=== PATIENT | female | born 1965 | race Caucasian/White ===

== ENCOUNTER 2021-02-04 15:58 | Outpatient (CLI) | payer OTHER, SELFPAY ==
--- NOTE | ~2021-02-04 | XR_ITS ---
EXAMINATION:XR_[id number]_CR DATE: 02/04/2021 16:40 INDICATION: Neck pain TECHNIQUE: AP, lateral, lateral swimmers and odontoid views of the cervical spine are provided. COMPARISON: None FINDINGS: Alignment is normal. The odontoid is intact. No fracture is identified. There are changes o f anterior fusion with interbody device placement at C5-6 and C6-7. There is severe loss of intervert ebral disc space height at C4-5. There is mild loss of vertebral body height at C5-C6. Severe facet a nd uncovertebral joint osteoarthritis is present at C4-5. Prevertebral soft tissues are normal. IMPRESSION: 1. Severe cervical spondylosis at C4-5 with changes of anterior fusion from C5 through C7. Reviewed, dictated and finalized at location A.
[2021-02-04 16:17] LABS: Basophils Absolute Auto 0.07 K/mm3 (0.00-0.10); Basophils Percent Auto 0.8 % (0.0-1.0); Eosinophils Percent Auto 3.3 % (1.0-6.0); Hematocrit 45.2 % (35.0-49.0); Hemoglobin 15.5 g/dL (12.0-15.0); Immature Granulocyte Absolute 0.03 K/mm3 (0.00-0.00); Immature Granulocyte Percent A 0.3 % (0.0-0.0); Lymphocytes Absolute Auto 2.88 K/mm3 (1.10-4.50); Lymphocytes Percent Auto 31.5 % (18.0-42.0); Mean Corpuscular HGB Conc 34.3 g/dL (32.0-36.0); Mean Corpuscular Hemoglobin 30.9 pg (27.0-31.0); Neutrophils Absolute Auto 4.8 K/mm3 (1.7-7.2); Neutrophils Percent Auto 52.1 % (50.0-70.0); Platelet Count Result 346 K/mm3 (150-420); Red Blood Count 5.02 M/mm3 (4.20-5.40); Red Cell Distribution Width 13.4 % (11.6-14.4); White Blood Count 9.1 K/mm3 (4.8-10.8)
[2021-02-04 16:38] LABS: Hemoglobin A1C 9.6 % (<5.7)
[2021-02-04 17:12] LABS: Alanine Aminotransferase 27 U/L (14-59); Albumin Level 4.1 g/dL (3.4-5.0); Alkaline Phosphatase 117 U/L (46-116); Anion Gap 12 mmol/L (8-16); Aspartate Amino Transferase 14 U/L (15-37); Bilirubin,Total 0.6 mg/dL (0.00-1.00); Blood Urea Nitrogen 16 mg/dL (7-18); Calcium 9.6 mg/dL (8.5-10.1); Carbon Dioxide 24 mmol/L (21-32); Chloride 102 mmol/L (98-108); Cholesterol 206 mg/dL (0-200); Estimated Glomerular Filt Rate 39; Glucose 57 mg/dL (70-99); HDL Direct 39 mg/dL (40-60); LDL Cholesterol Calculated 122 mg/dL (<130); Osmolality Calculated 285 mOsm/kg (285-295); Potassium 3.8 mmol/L (3.5-5.1); Sodium 138 mmol/L (136-145); Thyroid Stimulating Hormone 1.08 uIU/mL (0.36-3.74); Total Protein 8.4 g/dL (6.4-8.2); Triglycerides 226 mg/dL (0-150)
== END 2021-02-04 15:59 | disposition home or self-care (01) ==
LOC: CHSLAB 16:03
PROVIDERS: PCP Nurse Practitioner Family; Visit Provider Nurse Practitioner Family
DX: M54.2 Cervicalgia (principal); E11.9 Type 2 diabetes mellitus without complications; C73 Malignant neoplasm of thyroid gland
CPT/HCPCS: 36415; 72040; 80053; 80061; 83036; 84443; 85025

== ENCOUNTER 2021-04-30 10:25 | Outpatient (CLI) | payer OTHER, SELFPAY ==
[2021-04-30 10:36] LABS: Basophils Absolute Auto 0.08 K/mm3 (0.00-0.10); Eosinophils Absolute Auto 0.24 K/mm3 (0.02-0.50); Eosinophils Percent Auto 2.9 % (1.0-6.0); Hematocrit 47.9 % (35.0-49.0); Hemoglobin 16.5 g/dL (12.0-15.0); Immature Granulocyte Absolute 0.03 K/mm3 (0.00-0.00); Immature Granulocyte Percent A 0.4 % (0.0-0.0); Lymphocytes Absolute Auto 2.23 K/mm3 (1.10-4.50); Lymphocytes Percent Auto 26.7 % (18.0-42.0); Mean Corpuscular HGB Conc 34.4 g/dL (32.0-36.0); Mean Corpuscular Hemoglobin 30.8 pg (27.0-31.0); Mean Corpuscular Volume 89.5 fL (78.0-102.0); Mean Platelet Volume 9.1 fl (9.2-11.8); Monocytes Absolute Auto 0.83 K/mm3 (0.10-0.90); Monocytes Percent Auto 9.9 % (2.0-11.0); Neutrophils Absolute Auto 4.9 K/mm3 (1.7-7.2); Neutrophils Percent Auto 59.1 % (50.0-70.0); Platelet Count Result 310 K/mm3 (150-420); Red Blood Count 5.35 M/mm3 (4.20-5.40); Red Cell Distribution Width 12.6 % (11.6-14.4); White Blood Count 8.4 K/mm3 (4.8-10.8)
[2021-04-30 11:24] LABS: Alanine Aminotransferase 27 U/L (14-59); Albumin Level 4.1 g/dL (3.4-5.0); Alkaline Phosphatase 127 U/L (46-116); Anion Gap 14 mmol/L (8-16); Aspartate Amino Transferase 16 U/L (15-37); Bilirubin,Total 0.5 mg/dL (0.00-1.00); Blood Urea Nitrogen 14 mg/dL (7-18); Carbon Dioxide 25 mmol/L (21-32); Chloride 101 mmol/L (98-108); Cholesterol 244 mg/dL (0-200); Estimated Glomerular Filt Rate 50; Glucose 252 mg/dL (70-99); HDL Direct 42 mg/dL (40-60); LDL Cholesterol Calculated 160 mg/dL (<130); Osmolality Calculated 299 mOsm/kg (285-295); Potassium 4.5 mmol/L (3.5-5.1); Sodium 140 mmol/L (136-145); Thyroid Stimulating Hormone 1.91 uIU/mL (0.36-3.74); Triglycerides 210 mg/dL (0-150)
== END 2021-04-30 10:26 | disposition home or self-care (01) ==
LOC: CHSLAB 10:27
PROVIDERS: PCP Nurse Practitioner Family; Visit Provider Nurse Practitioner Family
DX: E78.5 Hyperlipidemia, unspecified (principal); C73 Malignant neoplasm of thyroid gland; E11.9 Type 2 diabetes mellitus without complications
CPT/HCPCS: 36415; 80053; 80061; 83036; 84443; 85025

== ENCOUNTER 2021-06-04 08:58 | Outpatient (RCR) | payer OTHER, SELFPAY ==
--- NOTE | 2021-06-05 07:24 | PTOPEVAL ---
Thank you for referring Maggie García to [facility].? The patient is scheduled to be seen for therapy? __1__x/week for 8 visits. Please review, sign, date and return this plan of care LOVELY. I agree with and certify that the following plan of care is medically necessary. Referring Physician Date Admitting Provider: Attending Provider: Martha Haas NP Referring Provider: *PT Outpatient Evaluation Start: 06/05/21 06:51 Freq: Status: Active Protocol: Document 06/04/21 09:00 ISH (Rec: 06/05/21 07:24 [facility] [id number]) Therapy Assessment Status Assessment Status Assessment Status Evaluation Evaluation Information Problem Diagnosis cervicalgia Onset 11/01/20 Subjective Information Pt. reports that she first Query Text:As Reported By Patient/ expereinced neck pain in 2015 Family and underwent a fusion the same year. She reports that she noticed increasing pain since the beginning of the year. She states that she underwent xray and has severe arthritis in her neck. She notes pain and popping with described rotation of the neck and head. She describes most pain on the right side of the neck and radiates into the right hand. She reports that pain limits her sleep and she wakes frequently due to pain. She reports that her goal for therapy is to reduce her neck pain and get better sleep. Prior Level of Function Activity Level (Last 3 Months) Occupation disabled due to MS Hand Dominance Right Activity of Daily Living Ability Independent Indoor/Home Mobility Independent Community Mobility Independent Stairs Ability Independent Functional Cognition (Planning, Shopping Independent , Taking Medications) Cooking Yes Cleaning Yes Laundry Yes Shopping Yes Driving Yes Pain Assessment Timing of Pain Assessment Timing of Pain Assessment Pre-Treatment Pain Scale Pain Scale Used Numeric (1 - 10) Self Report Pain Assessment Neck Reported Pain Level 5 Pain Description Aching Pain Frequency Acute Pain Aggravating Fact
--- NOTE | 2021-07-23 10:03 | PTOPEVAL ---
Thank you for referring Maggie García to [facility].? The patient is scheduled to be seen for therapy? ____x/week for ___ weeks. Please review, sign, date and return this plan of care LOVELY. I agree with and certify that the following plan of care is medically necessary. Referring Physician Date Admitting Provider: Attending Provider: Martha Haas NP Referring Provider: GEORGINA Outpatient Evaluation Start: 06/05/21 06:51 Freq: Status: Active Protocol: Document 07/23/21 09:11 ACR (Rec: 07/23/21 10:02 [facility] [id number]) Therapy Assessment Status Assessment Status Assessment Status Discharge Evaluation Information Problem Diagnosis cervicalgia Onset 11/01/20 Subjective Information Patient reports that since Query Text:As Reported By Patient/ beginning therapy she doesn't Family believe that much has changed. Patient states that she is doing exercises at home, but the bands are hurting her hands with her MS. The patient states the hands are getting worse. Pain Assessment Timing of Pain Assessment Timing of Pain Assessment Assessment Pain Scale Pain Scale Used Numeric (1 - 10) Self Report Pain Assessment Neck Reported Pain Level 7 Greatest Pain Intensity 10 Pain Score Pain Score 7: Self Report Interventions Used Interventions Used By Clinicians Activity or ADL's,Electrical Stimulation,Exercise,Heat Cervical and Lumbar ROM Cervical ROM Cervical Flexion (0-60) 30 Query Text:Active in Degrees Cervical Extension (0-70) 35 Query Text:Active in Degrees Cervical Lateral Flexion Right (0-50) 25 Query Text:Active in Degrees Cervical Lateral Flexion Left (0-50) 19 Query Text:Active in Degrees Cervical Rotation Right (0-90) 27 Query Text:Active in Degrees Cervical Rotation Left (0-90) 40 Query Text:Active in Degrees Upper Extremity Muscle Strength Testing Scapular/Shoulder Right Shoulder Flexion Strength 4 Good Shoulder Abduction Strength 4 Good Shoulder Lateral Rotation Strength 4 Good Left Shoulder Flexion Strength 4 Good Shoulder Extension Strength 4 Good Shoulder Lateral Rotation Strength 4 Good Elbow/Forearm Right Elbow Flexion Strength 5 Normal Elbow Extension Strength 4 Good Left Elbow Flexion Strength 5 Normal Elbow Extension Strength 4 Good General Exercise General Exercises Exercise Description - reeval x 5 minutes Query Text:Record Sets, Reps, -bila
== END 2021-07-23 13:43 | disposition home or self-care (01) ==
LOC: CHSPT 08:58
PROVIDERS: PCP Nurse Practitioner Family; Visit Provider Nurse Practitioner Family
DX: M54.2 Cervicalgia (principal); M54.12 Radiculopathy, cervical region
CPT/HCPCS: 97014; 97110; 97161; G0283

== ENCOUNTER 2021-08-06 09:12 | Outpatient (CLI) | payer OTHER, SELFPAY ==
--- NOTE | ~2021-08-06 | MR_ITS ---
EXAMINATION: MR cervical spine wo/w con DATE: 08/06/2021 11:45 INDICATION: Cervicalgia with neck and bilateral upper extremity pain TECHNIQUE: Magnetic resonance imaging (MRI) of the cervical spine was performed without and with 15 m L Multihance intravenous contrast. Sequences included sagittal T2-weighted FSE, sagittal T2-weighted FS FSE, sagittal T1-weighted FSE, axial T2-weighted FSE, and axial T1-weighted SE. Postcontrast seque nces included sagittal T1-weighted FS FSE, and axial T1-weighted FS SE. COMPARISON: Cervical spine radiographs dated 02/04/2021 FINDINGS: There is straightening of the normal cervical lordosis. Mild upper thoracic levocurvature. Anterior s dandy fusion at C5-C7 with interbody bone graft cages which result in some surrounding metallic field s artifact. Unfused vertebral body heights are normal. There is increased marrow signal on both the T 2 and postcontrast T1 fat-saturated images at C4-C5 which could be reactive related to the degenerati ve disc disease at C4-C5 or artifact from the adjacent metallic bone graft cages at C5-C6. Marrow sig nal is otherwise normal.. Moderate disc height loss with degenerative endplate changes at C4-C5. Mild right-sided predominant disc height loss at T2-T3 through T4-T5. There is mild increased cord signal with deformation of the cord at the level of a severe stenosis at C4-C5. Mild non masslike enhanceme nt of the paraspinal musculature on the right adjacent to the C4-C5 facet joint which is likely react elizabeth related to the severe osteoarthritis. Cervical soft tissues are otherwise unremarkable. No other suspicious foci of abnormal enhancement. The following disc levels are specifically discussed: C2-C3: The disc does not extend beyond the endplate margin. There is no uncovertebral joint osteoarth ritis. There is mild right and severe left facet joint osteoarthritis. There is mild left neural fora erika stenosis. There is no central canal stenosis. C3-C4: Small central disc protrusion. There is mild left uncovertebral joint osteoarthritis. There is severe bilateral facet joint osteoarthritis. There is mild right and mild to moderate left neural fo raminal stenosis. There is minimal central canal stenosis. C4-C5: Annular fissure and broad-based disc extrusion extending from foraminal zone to foraminal zone with disc material extending a few millimeters cephalad and caudal to the level of the endplates. Th ere is hypertrophy of the ligamentum flavum. There is severe bilateral uncovertebral joint osteoarthr itis. There is moderate left and severe right facet joint osteoarthritis. There is moderate bilateral neural foraminal stenosis. There is severe central canal stenosis which measures 4-5 mm AP in the mi d sagittal plane. The cord is flattened AP and widened [id number] with effacement of the surroundi ng CSF signal. C5-C6: Disc space is fused with posterior endplate osteophytes. There is mild bilateral facet joint o steoarthritis. There is moderate bilateral neural foraminal stenosis. There is mild to moderate centr al canal stenosis measuring 8 mm AP in the mid sagittal plane with mild flattening of the cord which remains surrounded by CSF signal. C6-C7: Hypertrophic osteophyte extending across the posterior margin of the fused disc space There is mild bilateral facet joint osteoarthritis. There is mild right and mild to moderate left neural fora erika stenosis. There is mild central canal stenosis measuring 9 mm AP in the mid sagittal plane. C7-T1: The disc does not extend beyond the endplate margin. There is no uncovertebral joint osteoarth ritis. There is mild right and severe left facet joint osteoarthritis. There is moderate left neural foraminal stenosis. In addition there appears to be compression of the exiting left C8 nerve root whe re it passes between the left transverse process of C7, the hypertrophic osteophytes at the anterior m
[2021-08-06 09:35] LABS: Estimated Glomerular Filt Rate > 60
== END 2021-08-06 09:13 | disposition home or self-care (01) ==
LOC: CHSIMG 09:13
PROVIDERS: PCP Nurse Practitioner Family; Visit Provider Nurse Practitioner Family
DX: M54.2 Cervicalgia (principal); M54.12 Radiculopathy, cervical region; Z98.1 Arthrodesis status
CPT/HCPCS: 72156; A9577

== ENCOUNTER 2021-12-27 09:13 | Outpatient (CLI) | payer OTHER, SELFPAY ==
[2021-12-27 09:36] LABS: Hemoglobin A1C 10.5 % (<5.7)
[2021-12-27 10:46] LABS: Thyroid Stimulating Hormone 1.26 uIU/mL (0.36-3.74)
== END 2021-12-27 09:14 | disposition home or self-care (01) ==
LOC: CHSLAB 09:14
PROVIDERS: PCP Nurse Practitioner Family; Visit Provider Nurse Practitioner Family
DX: E11.9 Type 2 diabetes mellitus without complications (principal); C73 Malignant neoplasm of thyroid gland
CPT/HCPCS: 36415; 83036; 84443

== ENCOUNTER 2021-12-30 11:57 | Outpatient (CLI) | payer OTHER, SELFPAY | END 2021-12-30 11:58 | disposition home or self-care (01) | LOC: CHSIMG 11:58 | PROVIDERS: PCP Nurse Practitioner Family; Visit Provider Nurse Practitioner Family | DX: Z12.31 Encounter for screening mammogram for malignant neoplasm of breast (principal) | CPT/HCPCS: 99199 ==

== ENCOUNTER 2022-05-05 10:48 | Outpatient (CLI) | payer OTHER, SELFPAY ==
[2022-05-05 11:04] LABS: Basophils Absolute Auto 0.07 K/mm3 (0.00-0.10); Basophils Percent Auto 0.8 % (0.0-1.0); Eosinophils Absolute Auto 0.29 K/mm3 (0.02-0.50); Eosinophils Percent Auto 3.4 % (1.0-6.0); Hematocrit 46.1 % (35.0-49.0); Hemoglobin 15.9 g/dL (12.0-15.0); Immature Granulocyte Absolute 0.02 K/mm3 (0.00-0.00); Immature Granulocyte Percent A 0.2 % (0.0-0.0); Lymphocytes Absolute Auto 2.26 K/mm3 (1.10-4.50); Lymphocytes Percent Auto 26.9 % (18.0-42.0); Mean Corpuscular HGB Conc 34.5 g/dL (32.0-36.0); Mean Corpuscular Hemoglobin 30.5 pg (27.0-31.0); Mean Corpuscular Volume 88.5 fL (78.0-102.0); Mean Platelet Volume 9.5 fl (9.2-11.8); Monocytes Percent Auto 10.7 % (2.0-11.0); Neutrophils Absolute Auto 4.9 K/mm3 (1.7-7.2); Platelet Count Result 289 K/mm3 (150-420); Red Blood Count 5.21 M/mm3 (4.20-5.40); Red Cell Distribution Width 12.9 % (11.6-14.4); White Blood Count 8.4 K/mm3 (4.8-10.8)
[2022-05-05 11:24] LABS: Hemoglobin A1C 10.4 % (<5.7)
[2022-05-05 11:39] LABS: Alanine Aminotransferase 23 U/L (14-59); Albumin Level 3.9 g/dL (3.4-5.0); Alkaline Phosphatase 164 U/L (46-116); Anion Gap 10 mmol/L (8-16); Aspartate Amino Transferase 13 U/L (15-37); Bilirubin,Total 0.4 mg/dL (0.00-1.00); Blood Urea Nitrogen 11 mg/dL (7-18); Calcium 9.2 mg/dL (8.5-10.1); Carbon Dioxide 26 mmol/L (21-32); Chloride 107 mmol/L (98-108); Estimated Glomerular Filt Rate 60; Glucose 210 mg/dL (70-99); Osmolality Calculated 301 mOsm/kg (285-295); Sodium 143 mmol/L (136-145); Total Protein 7.9 g/dL (6.4-8.2)
[2022-05-06 11:41] LABS: Cholesterol 273 mg/dL (0-200); HDL Direct 39 mg/dL (40-60); LDL Cholesterol Calculated 175 mg/dL (<130); Triglycerides 295 mg/dL (0-150)
== END 2022-05-05 10:49 | disposition home or self-care (01) ==
LOC: CHSLAB 10:50
PROVIDERS: Nurse Practitioner Family; PCP Nurse Practitioner Family; Visit Provider Nurse Practitioner Family
DX: E78.5 Hyperlipidemia, unspecified (principal); E11.9 Type 2 diabetes mellitus without complications; C73 Malignant neoplasm of thyroid gland
CPT/HCPCS: 36415; 80053; 80061; 83036; 84443; 85025

== ENCOUNTER 2022-12-23 13:03 | Outpatient (CLI) | payer MEDICARE, SELFPAY ==
--- NOTE | 2022-12-23 13:19 | ECG_ITS ---
Measurements Intervals [place] Rate: 97 P: -8 SC: 155 QRS: 15 QRSD: 93 T: 1 QT: 338 QTc: 431 Interpretive Statements SINUS RHYTHM NONSPECIFIC T-WAVE ABNORMALITY ABNORMAL ECG NO PREVIOUS ECG AVAILABLE FOR COMPARISON Electronically Signed On 12-23-2022 13:42:15 [employer] by Elliot Tao M.D.
[2022-12-23 13:21] LABS: Hematocrit 37.3 % (35.0-49.0); Hemoglobin 12.7 g/dL (12.0-15.0); Mean Corpuscular Hemoglobin 29.6 pg (27.0-31.0); Mean Corpuscular Volume 86.9 fL (78.0-102.0); Mean Platelet Volume 9.2 fl (9.2-11.8); Platelet Count Result 339 K/mm3 (150-420); Red Blood Count 4.29 M/mm3 (4.20-5.40); Red Cell Distribution Width 12.5 % (11.6-14.4); White Blood Count 13.1 K/mm3 (4.8-10.8)
[2022-12-23 13:45] LABS: Hemoglobin A1C 8.3 % (<5.7)
[2022-12-23 14:44] LABS: Alanine Aminotransferase 28 U/L (14-59); Albumin Level 3.3 g/dL (3.4-5.0); Alkaline Phosphatase 109 U/L (46-116); Anion Gap 11 mmol/L (8-16); Aspartate Amino Transferase 19 U/L (15-37); Bilirubin,Total 0.4 mg/dL (0.00-1.00); Blood Urea Nitrogen 10 mg/dL (7-18); Calcium 8.7 mg/dL (8.5-10.1); Carbon Dioxide 29 mmol/L (21-32); Chloride 104 mmol/L (98-108); Cholesterol 170 mg/dL (0-200); Estimated Glomerular Filt Rate > 60; Free T4 Free Thyroxine 1.13 ng/dL (0.76-1.46); Glucose 65 mg/dL (70-99); HDL Direct 25 mg/dL (40-60); LDL Cholesterol Calculated 114 mg/dL (<130); NT Pro B Type Natriuretic Pept 61 pg/mL (0-125); Osmolality Calculated 295 mOsm/kg (285-295); Potassium 3.6 mmol/L (3.5-5.1); Sodium 144 mmol/L (136-145); Thyroid Stimulating Hormone 1.09 uIU/mL (0.36-3.74); Total Protein 7.4 g/dL (6.4-8.2); Triglycerides 157 mg/dL (0-150)
== END 2022-12-23 13:04 | disposition home or self-care (01) ==
PROVIDERS: PCP Nurse Practitioner Family; Visit Provider Nurse Practitioner Family
DX: E78.5 Hyperlipidemia, unspecified (principal); E11.9 Type 2 diabetes mellitus without complications; E89.0 Postprocedural hypothyroidism; R00.0 Tachycardia, unspecified; R07.89 Other chest pain; R06.82 Tachypnea, not elsewhere classified
CPT/HCPCS: 36415; 80053; 80061; 83036; 83880; 84439; 84443; 85027; 93005

== ENCOUNTER 2023-02-26 01:49 | Day surgery (SDC) | payer MEDICARE, SELFPAY ==
[2023-02-09 15:08] VITALS: BMI 24.0
--- NOTE | 2023-02-09 15:14 | PC.NURSE ---
Addendum entered by Liz Chavira RN 02/18/23 11:28: PT INSTRUCTED NOT TO TAKE ANY INSULIN MORNING OF SURGERY. Addendum entered by Liz Chavira RN 02/18/23 11:28: PT TO ARRIVE AT 0600 ON 02/26/23 FOR SURGERY AT 0730. Original Note: Report to the Outpatient Waiting Room, entrance under the green pavilion located off [facility], at time 1200 on date 02/15/23. Planned Procedure Time: 1400. Time changes happen often and if your time is changed the preop area will call you the afternoon before. - You and your visitor will be asked to self-screen and do not enter if you have any COVID symptoms. - A mask is optional within the hospital at this time. Patients may have clear liquids (water, carbonated beverages, clear teas, apple juice) until 3 hours prior to surgery with a maximum of 20 ounces. - No food from midnight until time of surgery Take the following medications with a SIP of water the morning of surgery: INHALER IF NEEDED, LEVOTHYROXINE, LYRICA, 1/2 AM INSULIN DOSE DO NOT STOP ANY OF YOUR OTHER PRESCRIPTION MEDICATIONS PRIOR TO SURGERY ?EXCEPT THE FOLLOWING Medications to discontinue per physician: N/A Date to take last dose: N/A Please no make-up, nail english, hairspray, perfume, deodorant, or body powder the day of surgery. No jewelry (including any body piercings) or valuables the day of surgery, leave them at home. Please take a shower or bath the night before, or the morning of, surgery with an antibacterial soap. Wear comfortable, loose fitting clothing. - Jewelry must be removed prior to entering the operating room. Rings and piercings that are not removed may be cut off. - The hospital will not accept responsibility for valuables. - Please leave all valuables, including medications, at home the day of surgery. If you are going home after surgery, a licensed livery car driver must drive you home. - NO public transportation without another adult if you receive anesthesia. - We recommend that an adult stay with you for 24 hours following discharge. - We also recommend that you do not drive, make important decision, drink alcoholic beverages, or take any drugs that were not prescribed by your health care provider for at least 24 hours after your discharge time. Follow any additional instructions given to you from your surgeon. If you or anyone in your household have experienced Covid symptoms in the past week, please notify your surgeon or the nurse liaison at the phone number below for possible testing. Telephone instructions given to JOVITA GRULLON and asked if any additional questions and then verbalized understanding. Patient advised to call surgeon office or pre surgery nurse liaison [phone] if any additional questions.
--- NOTE | 2023-02-18 11:28 | PC.NURSE ---
Pt states no changes in medications or health history since initial interview. New pre-op instructions reviewed with pt. Pt denies further questions at this time.
[2023-02-26 06:45] LABS: Glucose Point of Care 247 mg/dl (65-105)
[2023-02-26 06:53] VITALS: BP 164/72; PULSE 79; RESP 14; TEMP 36.1; O2SAT 100
[2023-02-26] MEDS: LACTATED RINGERS 1,000 ML 30 ML IV CONT (07:01)
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
[2023-02-26] MEDS: INSULIN HUMAN REGULAR (*BKC) 100 UNITS/ML 6 UNITS SUB-Q (07:08)
--- NOTE | 2023-02-26 07:25 | WPDHPUPDATE1 ---
History and Physical Update Update Date/Time: 02/26/23 07:25 History and Physical has been reviewed, including an updated exam of the patient. There are NO changes in the patient's condition. Risks, benefits, and alternatives have been discussed and questions answered. Patient agrees to proceed with procedure.
[2023-02-26] MEDS: ceFAZolin 2 GM/D5W 50 ML 2 GM/50 ML BAG IVPB (07:35)
[2023-02-26] MEDS: LIDO 1%/EPINEPHRINE 1:100,000 20 ML VIAL 10 ML INFILTRATE (07:54)
--- NOTE | 2023-02-26 08:37 | P.OP_ITS ---
Procedure Note - Detailed Date of Procedure 02/26/23 Pre-op Diagnosis Right axillary incision cyst Post-op Diagnosis Same Procedure Performed Excision right axillary inclusion cyst with 7cm intermediate layered wound closure Surgeon Yoni Hare MD Property Insurance Inspector JOVANI Meneses Anesthesia MAC and Local Indications Patient is a 57-year-old female who had a infected inclusion cyst in her right axillary region which was drained in the emergency room. It was then packed and allowed to heal. She now presents to have the cyst wall remnants excised. Findings Ellipse of tissue containing the cyst measured 5cm x 1cm x 1cm. Intermediate layered wound closure 7cm. Description of Procedure After informed consent was obtained the patient is brought to the operating room she is placed in supine position and IV sedation was administered by anesthesia. With the right arm abducted above her head the right axilla was exposed and was then prepped and draped in usual sterile fashion. A time-out was then performed correctly identifying the patient as well as procedure to be performed verifying site marking. She was given perioperative IV antibiotics. I then injected 1% lidocaine mixed with 0.5% Marcaine around the cyst for local anesthetic effect. I then proceeded to make a long narrow elliptical incision to include the 2 punctums into the cyst. Dissection was carried sharply down to the dermis of the skin and then electrocautery was used to excise out the cyst and its underlying fibrotic tissue. Once the ellipse of tissue containing the cyst wall was excised was sent to pathology for examination. The cyst measured 5cm x 1cm x 1cm. An intermediate layered wound closure consisting of 2-0 Vicryl suture and 3-0 Vicryl sutures in multiple layers in the subcutaneous tissues was then performed. Interrupted 3-0 nylon sutures were used to approximate this images. The length of the intermediate layered wound closure was 7cm. The area was then cleaned and then antibiotic ointment was applied to the incision line. Was then covered with dry 4x4 gauze and Medipore tape. The patient tolerated the procedure well no complications. All sponges, needles, and instrument counts were correct at the end procedure. EBL was _5__cc. The patient was awakened and taken to recovery in stable and satisfactory condition. Implants None Estimated Blood Loss 5 Drains No Packing No Pathology Yes Complications No immediate complications Condition Stable Disposition PACU [facility] Billing Surgery - Charge Forward: Surgery Billing
[2023-02-26 08:40] VITALS: BP 101/58; PULSE 87; RESP 16; O2SAT 92
[2023-02-26 08:45] LABS: Glucose Point of Care 195 mg/dl (65-105)
[2023-02-26 09:00] VITALS: BP 103/55; PULSE 78; RESP 16; O2SAT 97
[2023-02-26 09:30] VITALS: BP 140/80; PULSE 88; RESP 16
== END 2023-02-26 09:50 | disposition home or self-care (01) ==
PROVIDERS: PCP Nurse Practitioner Family; Visit Provider Surgery
PROC: (CPT 11406; principal; 2023-02-26 07:30)
DX: L72.0 Epidermal cyst (principal); G35 Multiple sclerosis; E11.9 Type 2 diabetes mellitus without complications; E78.5 Hyperlipidemia, unspecified; F41.8 Other specified anxiety disorders; E89.0 Postprocedural hypothyroidism; Z85.850 Personal history of malignant neoplasm of thyroid; Z87.891 Personal history of nicotine dependence; Z79.84 Long term (current) use of oral hypoglycemic drugs; Z79.4 Long term (current) use of insulin; Z79.51 Long term (current) use of inhaled steroids
CPT/HCPCS: 11406; 12032; 82948; 88305; A9270; J0690; J1815; J2250; J2704; J3010; J7120

== ENCOUNTER 2023-04-15 12:32 | Outpatient (CLI) | payer MEDICARE, SELFPAY ==
[2023-04-15 12:49] LABS: Hematocrit 39.9 % (35.0-49.0); Hemoglobin 13.5 g/dL (12.0-15.0); Mean Corpuscular HGB Conc 33.8 g/dL (32.0-36.0); Mean Corpuscular Hemoglobin 30.1 pg (27.0-31.0); Mean Corpuscular Volume 88.9 fL (78.0-102.0); Mean Platelet Volume 9.1 fl (9.2-11.8); Platelet Count Result 315 K/mm3 (150-420); Red Blood Count 4.49 M/mm3 (4.20-5.40); Red Cell Distribution Width 12.7 % (11.6-14.4); White Blood Count 12.7 K/mm3 (4.8-10.8)
[2023-04-15 13:03] LABS: INR 1.1; Prothrombin Time 11.9 Seconds (9.50-12.10)
[2023-04-15 13:21] LABS: Alanine Aminotransferase 28 U/L (14-59); Albumin Level 3.3 g/dL (3.4-5.0); Alkaline Phosphatase 108 U/L (46-116); Anion Gap 12 mmol/L (8-16); Aspartate Amino Transferase 16 U/L (15-37); Bilirubin,Total 0.4 mg/dL (0.00-1.00); Blood Urea Nitrogen 14 mg/dL (7-18); Calcium 8.5 mg/dL (8.5-10.1); Carbon Dioxide 26 mmol/L (21-32); Chloride 102 mmol/L (98-108); Estimated Glomerular Filt Rate 46; Glucose 166 mg/dL (70-99); Lipase 37 U/L (16-77); Osmolality Calculated 294 mOsm/kg (285-295); Potassium 3.3 mmol/L (3.5-5.1); Sodium 140 mmol/L (136-145); Total Protein 7.7 g/dL (6.4-8.2)
[2023-04-15 13:23] LABS: CRP > 25.0 mg/dL (0.0-0.9)
== END 2023-04-15 12:33 | disposition home or self-care (01) ==
LOC: CHSLAB 12:35
PROVIDERS: PCP Family Medicine; Visit Provider Family Medicine
DX: R10.9 Unspecified abdominal pain (principal)
CPT/HCPCS: 36415; 80053; 83690; 85027; 85610; 86140

== ENCOUNTER 2023-04-19 08:34 | Outpatient (CLI) | payer MEDICARE, SELFPAY ==
--- NOTE | ~2023-04-19 | US_ITS ---
Abdominal Sonogram: Real-time sonographic imaging of the abdomen was performed. Clinical History: Abdominal pain Findings: The liver appears normal with no evidence of mass lesion or bile duct dilatation. Main por gracie vein demonstrates normal direction of flow. The spleen is normal in size without evidence of foca l lesion. The gallbladder is well distended, and appears normal with no evidence of gallstone or wal l thickening. The common bile duct measures 6 mm. The visualized pancreas, aorta, and IVC are unrema rkable. The right kidney measures 9.0 cm in length and the left kidney measures 9.7 cm. There is no hydronephrosis or renal calculus. Impression: Unremarkable abdominal ultrasound. Reviewed, dictated and finalized at location . Impression: Unremarkable abdominal ultrasound.
== END 2023-04-19 08:35 | disposition home or self-care (01) ==
LOC: CHSIMG 08:35
PROVIDERS: PCP Family Medicine; Visit Provider Family Medicine
DX: R10.9 Unspecified abdominal pain (principal)
CPT/HCPCS: 76700

== ENCOUNTER 2023-05-27 02:20 | Day surgery (SDC) | payer MEDICARE, SELFPAY ==
[2023-05-19 13:31] VITALS: BMI 25.1
[2023-05-27 07:10] VITALS: BP 104/87; PULSE 77; RESP 16; TEMP 36.3; O2SAT 98; BMI 25.7
[2023-05-27] MEDS: LACTATED RINGERS 1,000 ML 150 ML IV CONT (07:17)
[2023-05-27 07:27] LABS: Glucose Point of Care 147 mg/dl (65-105)
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
[2023-05-27 08:20] VITALS: BP 152/68; PULSE 72; RESP 15; O2SAT 100
[2023-05-27 08:30] VITALS: BP 145/81; PULSE 71; RESP 15; O2SAT 98
[2023-05-27 08:35] LABS: Glucose Point of Care 123 mg/dl (65-105)
[2023-05-27 08:40] VITALS: BP 151/79; PULSE 75; RESP 11; O2SAT 97
== END 2023-05-27 08:48 | disposition home or self-care (01) ==
PROVIDERS: PCP Family Medicine; Visit Provider Surgery
PROC: 0DJ08ZZ Inspection of Upper Intestinal Tract, Via Natural or Artificial Opening Endoscopic (ICD-10-PCS; CPT 43235; principal; 2023-05-27 08:00)
DX: K29.00 Acute gastritis without bleeding (principal); K21.9 Gastro-esophageal reflux disease without esophagitis; F41.8 Other specified anxiety disorders; E78.5 Hyperlipidemia, unspecified; E11.8 Type 2 diabetes mellitus with unspecified complications; Z85.850 Personal history of malignant neoplasm of thyroid; E89.0 Postprocedural hypothyroidism; G35 Multiple sclerosis; Z87.891 Personal history of nicotine dependence; F12.90 Cannabis use, unspecified, uncomplicated; Z79.4 Long term (current) use of insulin; Z79.51 Long term (current) use of inhaled steroids
CPT/HCPCS: 43239; 82948; 87081; 88305; J2704; J7120

== ENCOUNTER 2023-06-21 09:54 | Outpatient (CLI) | payer MEDICARE, SELFPAY ==
--- NOTE | 2023-06-24 08:40 | WPDHOLTEREM ---
Holter/Event Monitor Holter/Event Monitor Date of procedure: 06/21/23 Holter/Event Procedure: 48 Hr Holter Monitor Indications: Palpitations Conclusion: 1. 48 hour holter monitor on 06/21/23. 2. Underlying rhythm is sinus rhythm. HR range 58-121 bpm; average HR 85 bpm. 3. There are 11 premature supraventricular complexes and 1 supraventricular couplet. No supraventricular tachycardia. 4. There are 3 premature ventricular complexes and 1 ventricular triplet. No ventricular tachycardia. 5. No sinoatrial or atrioventricular blocks. No significant pauses greater than 2 seconds. 6. Patient reports symptoms of heart racing which demonstrate sinus rhythm, HR range 70-81 bpm.
== END 2023-06-21 09:55 | disposition home or self-care (01) ==
LOC: CHSCARD 09:55
PROVIDERS: PCP Family Medicine; Visit Provider Family Medicine
DX: R00.2 Palpitations (principal)
CPT/HCPCS: 93225; 93226

== ENCOUNTER 2024-05-12 10:51 | Outpatient (CLI) | payer MEDICARE, SELFPAY ==
[2024-05-12 11:10] LABS: Basophils Absolute Auto 0.08 K/mm3 (0.00-0.10); Basophils Percent Auto 0.9 % (0.0-1.0); Eosinophils Absolute Auto 0.24 K/mm3 (0.02-0.50); Eosinophils Percent Auto 2.8 % (1.0-6.0); Hematocrit 45.1 % (35.0-49.0); Hemoglobin 15.4 g/dL (12.0-15.0); Immature Granulocyte Absolute 0.03 K/mm3 (0.00-0.00); Immature Granulocyte Percent A 0.4 % (0.0-0.0); Lymphocytes Absolute Auto 2.07 K/mm3 (1.10-4.50); Lymphocytes Percent Auto 24.4 % (18.0-42.0); Mean Corpuscular HGB Conc 34.1 g/dL (32-36); Mean Corpuscular Hemoglobin 30.3 pg (27.0-31.0); Mean Corpuscular Volume 88.6 fL (78.0-102.0); Monocytes Absolute Auto 0.81 K/mm3 (0.10-0.90); Monocytes Percent Auto 9.6 % (2.0-11.0); Neutrophils Absolute Auto 5.24 K/mm3 (1.70-7.20); Neutrophils Percent Auto 61.9 % (50.0-70.0); Platelet Count Result 301 K/mm3 (150-420); Red Blood Count 5.09 M/mm3 (4.20-5.40); Red Cell Distribution Width 13.2 % (11.6-14.4); White Blood Count 8.5 K/mm3 (4.8-10.8)
[2024-05-12 11:18] LABS: Creatinine Urine 36.36 mg/dL (40-278); MALB Creatinine Ratio 36.3 mg/g (0-30); Microalbumin Urine Random 13.2 mg/L
[2024-05-12 11:21] LABS: Hemoglobin A1C 7.6 % (<5.7)
[2024-05-12 12:13] LABS: Alanine Aminotransferase 31 U/L (14-59); Alkaline Phosphatase 120 U/L (46-116); Anion Gap 9 mmol/L (4-12); Aspartate Amino Transferase 21 U/L (15-37); Bilirubin,Total 0.3 mg/dL (0.00-1.00); Blood Urea Nitrogen 12 mg/dL (7-18); Calcium 8.8 mg/dL (8.5-10.1); Carbon Dioxide 31 mmol/L (21-32); Chloride 101 mmol/L (98-108); Cholesterol 249 mg/dL (0-200); Estimated Glomerular Filt Rate 60; Glucose 95 mg/dL (70-99); HDL Direct 45 mg/dL (40-60); LDL Cholesterol Calculated 122 mg/dL (<130); Osmolality Calculated 291 mOsm/kg (285-295); Potassium 4.3 mmol/L (3.5-5.1); Sodium 141 mmol/L (136-145); Thyroid Stimulating Hormone 1.52 uIU/mL (0.36-3.74); Total Protein 7.7 g/dL (6.4-8.2); Triglycerides 411 mg/dL (0-150)
[2024-05-12 12:19] LABS: LDL Cholesterol Direct 150 mg/dL (0-130)
[2024-05-14 02:38] LABS: Vitamin D 25 Hydroxy 15 ng/mL (30-100)
== END 2024-05-12 10:52 | disposition home or self-care (01) ==
LOC: CHSLAB 10:52
PROVIDERS: PCP Nurse Practitioner Family; Visit Provider Nurse Practitioner Family
DX: M79.7 Fibromyalgia (principal); E89.0 Postprocedural hypothyroidism; E11.9 Type 2 diabetes mellitus without complications; Z79.899 Other long term (current) drug therapy
CPT/HCPCS: 36415; 80053; 80061; 82043; 82306; 83036; 83721; 84443; 85025

== ENCOUNTER 2024-06-20 12:08 | Outpatient (CLI) | payer MEDICARE, SELFPAY ==
--- NOTE | ~2024-06-20 | CT_ITS ---
EXAMINATION:CT lung screening DATE: 06/20/2024 13:28 INDICATION: Personal history of nicotine dependence. Smoker who quit 3 years ago with 20 pack year hi story. TECHNIQUE: Computed tomography (CT) of the chest was performed without intravenous contrast. Automate d exposure control and iterative reconstruction technique were employed. The dose-length product (DLP ) was 84.96 mGy-cm. COMPARISON: Chest CT 04/13/2019 FINDINGS: There is mild emphysema. There is stable mild scarring in right upper lobe. There is mild a telectasis bilaterally. There is a stable 5 mm nodule in left lower lobe. There is a stable 6 mm nodu le in left lower lobe. There is a stable cluster of small nodules in left upper lobe. A calcified lef t lung nodule and calcified left hilar and mediastinal lymph nodes are consistent with old granulomat ous disease. No pleural effusion. There are changes of anterior fusion procedure in cervical spine. T he heart size is normal. There are coronary artery calcifications. No pericardial effusion. There are changes of anterior fusion procedure in cervical spine. There is thoracic levoscoliosis and severe s pondylosis. IMPRESSION: 1. Lung-RADS category 2: Benign appearance or behavior. Continue annual screening with noncontrast lo w-dose chest CT in 12 months. Reviewed, dictated and finalized at location A. IMPRESSION: 1. Lung-RADS category 2: Benign appearance or behavior. Continue annual screeni ng with noncontrast low-dose chest CT in 12 months.
--- NOTE | ~2024-06-20 | US_ITS ---
EXAMINATION: US carotid duplex BI DATE: 06/20/2024 13:10 INDICATION: Neck pain. TECHNIQUE: Grayscale, color Doppler, and pulsed Doppler images of the cervical carotid arteries were obtained. The degree of vessel stenosis is placed in one of the following categories: normal, <50%, 5 0-69%, >=70% but less than near-occlusion, near-occlusion, or total occlusion. Note that percent sten osis relative to normal distal artery lumen diameter is indirectly measured from velocity measurement s as described by Toney, et al. Radiology 2003; 229:340-346. COMPARISON: None. FINDINGS: RIGHT: The right common carotid artery (CCA) peak systolic velocity (PSV) is 78 cm/s. The right internal car otid artery (ICA) PSV is 75 cm/s. The right ICA end-diastolic velocity (EDV) is 22 cm/s. The right IC A/CCA PSV ratio is 1.0. Grayscale and color Doppler images yield an estimate of <50% diameter reducti on from plaque in the ICA. There is antegrade flow in the right vertebral artery. LEFT: The left CCA PSV is 75 cm/s. The left ICA PSV is 118 cm/s. The left ICA EDV is 37 cm/s. The left ICA/ CCA PSV ratio is 1.6. Grayscale and color Doppler images yield an estimate of <50% diameter reduction from plaque in the ICA. There is antegrade flow in the left vertebral artery. IMPRESSION: 1. <50% stenosis in the right internal carotid artery. 2. <50% stenosis in the left internal carotid artery. Reviewed, dictated and finalized at location A.
--- NOTE | ~2024-06-20 | US_ITS ---
EXAMINATION: US art doppler w press LE BI DATE: 06/20/2024 13:10 INDICATION: Peripheral vascular disease TECHNIQUE: Segmental pressures and plethysmographic and Doppler waveforms of the brachial and lower e xtremity arteries were obtained. COMPARISON: None. FINDINGS: Right and left brachial artery pressures of 126 mm Hg and 126 mm Hg, respectively, are concordant (no rmal difference <= 30 mmHg). The right ankle-brachial index (JUSTIN) is 1.07 (normal >= 0.9-1). The right great toe-brachial index (T BI) is 0.74 (normal >= 0.6-0.8). Arterial waveforms demonstrate brisk systolic upstrokes at the right common femoral, popliteal, posterior tibial and dorsalis pedis arteries. The left JUSTIN is 1.09. The left TBI is 0.91. Arterial waveforms demonstrate brisk systolic upstrokes a t the left common femoral, popliteal, posterior tibial and dorsalis pedis arteries. IMPRESSION: 1. Normal JUSTIN's and TBI's bilaterally. No significant occlusive disease. Reviewed, dictated and finalized at location A.
--- NOTE | ~2024-06-20 | MM_ITS ---
EXAMINATION: MM screening massimo BI w dick HISTORY: Screening TECHNIQUE: Craniocaudal and mediolateral oblique 3-D tomosynthesis images were obtained and synthetic 2-D images were generated. CAD analysis was submitted and interpreted. COMPARISON: Comparison to multiple prior studies sequentially, with oldest reviewed study dated 11/26. BREAST PARENCHYMAL COMPOSITION: Not dense: There are scattered areas of fibroglandular density. FINDINGS: There is no evidence of suspicious mass, calcification, or architectural distortion to sugg est malignancy in either breast. There has been no suspicious interval change. IMPRESSION: 1. No mammographic evidence of malignancy. 2. Recommend routine screening mammography in one year. BI-RADS Category 1: Negative Reviewed, dictated and finalized at location B.
== END 2024-06-20 12:09 | disposition home or self-care (01) ==
PROVIDERS: PCP Nurse Practitioner Family; Visit Provider Nurse Practitioner Family
DX: I73.9 Peripheral vascular disease, unspecified (principal); M54.2 Cervicalgia; E78.5 Hyperlipidemia, unspecified; Z12.2 Encounter for screening for malignant neoplasm of respiratory organs; Z87.891 Personal history of nicotine dependence; Z12.31 Encounter for screening mammogram for malignant neoplasm of breast; I65.23 Occlusion and stenosis of bilateral carotid arteries
CPT/HCPCS: 71271; 77063; 77067; 93880; 93923

== ENCOUNTER 2025-02-12 09:52 | Outpatient (CLI) | payer MEDICARE, SELFPAY ==
--- NOTE | ~2025-02-12 | DEXA_ITS ---
Bone Density Report Name: ERIC GRULLON Age: 59 Sex: Female Ethnicity: White Date of : 1965 Indication: postmenopausal; screening for osteoporosis; parental hip fracture; cancer; secondary osteoporosis; Referring Provider: WANDER ALEMAN Study: Bone densitometry was performed. Exam Date: February 12, 2025 Accession number: [id number] Bone Density: Region BMD T-score Z-score Classification AP Spine(L1-L4) 0.835 -1.9 -0.4 Osteopenia Femoral Neck (Left) 0.521 -3.0 -1.6 Osteoporosis Total Hip (Left) 0.600 -2.8 -1.8 Osteoporosis Femoral Neck (Right) 0.556 -2.6 -1.3 Osteoporosis Total Hip (Right) 0.650 -2.4 -1.3 Osteopenia Femoral Neck Mean 0.539 -2.8 -1.4 Osteoporosis Total Hip Mean 0.625 -2.6 -1.5 Osteoporosis World Health Organization criteria for BMD impression classify patients as: Normal (T-score at or above -1.0), Osteopenia (T-score between -1.0 and -2.5), or Osteoporosis (T-score at or below -2.5). 10-year Fracture Risk: FRAX not reported because: Some T-score for Spine Total or Hip Total or Femoral Neck at or below -2.5 Clinical Information Provided by Patient: Parent has had a hip fracture Has secondary osteoporosis Has used the following medications: Vitamin D, Calcium Has the following medical conditions: Cancer, THYROID CA, COPD Patient maximum height was 64.5 Menopause Age: 51 No regular weight bearing exercise Drinks caffeinated beverages Onset of menses at age 12 Number of children 1 Impression: The patient has osteoporosis, based on the Left Femoral Neck T-score. The patient has risk factors, including: parental hip fracture. Discussion: INCREASED RISK OF FRACTURE. BONE DENSITY IS UNDESIRABLY LOW AT ONE OR MORE SKELETAL SITES, CONSISTENT WITH POSTMENOPAUSAL OSTEOPOROSIS. This patient's lowest T-score meets the World Health Organization's (WHO) criteria for osteoporosis at one or more sites (T-score -2.5 or below). In untreated patients, the risk of osteoporotic fracture increases approximately two-fold for each 1.0 SD decrease in T-score. Low bone density is not the only risk factor for fracture; also consider factors such as patient's age, frailty or poor health, risk of falling, risk of injury, previous osteoporotic fracture, family history of osteoporosis, cigarette smoking, low body weight, etc. Not everyone with low bone mineral density has osteoporosis; osteomalacia and other metabolic bone disorders should also be considered. Patients who have osteoporosis should be evaluated for specific diseases and conditions (secondary causes) that may cause or contribute to bone loss. The [place] Association of Clinical Endocrinologists (AACE) and National Osteoporosis Foundation (NOF) recommend pharmacologic intervention for all postmenopausal women whose T-score is in this range. The patient should follow a healthful lifestyle (good nutrition with adequate calcium and vitamin D, and appropriate weight-bearing exercise). Follow-Up: Consider a repeat BMD and Vertebral Fracture Assessment (VFA) exam in 2 years or sooner if medically necessary, to reassess this patient's status. Reported by: TYREE on 02/12/2025 10:23:00 AM. Reviewed, dictated and finalized at location A.
--- OUTSIDE RECORDS SUMMARY | 2025-02-12 10:50 | XMS_ITS | Encounter Summary ---
Author Organization [facility] Address [address] [place] [id number] Care Team Providers Care Pet Ambassador Name Role Phone Ada Estrada Primary Care Provider [phone] Lachelle Ruelas Primary Care Provider [phone] Yoni Whitaker MD Unavailable [phone] None, Provider Primary Care Provider Unavaila Wale Appiah DO Primary Care Provider [phone] Encounter Details Date Type Department Care Team (Late st Contact Info) Description 06/30/2003 Abstract [facility] Conversion , Generic Conversion, Social History Tobacco Use Types Packs/Day Years Used Date Smoking Tobacco: Never Assessed Comments Unknown Sex and Gender Information Value Date Recorded Sex Assigned at Not on file Legal Sex Female 7:22 PM CDT Gender Identity Not on file Sexual Orientation Not on file documented as of this encounter Plan of Treatment Not on file documented as of this encounter Visit Diagnoses Not on filedocumented in this encounter Care Teams Pet Ambassador Relationship Specialty Start Date End Date Ada Estrada FNP [address] [place] [address] PCP - General NURSE PRACTITIONER 09/19/18 10/25/18 Lachelle Ruelas FNP [address] [place] [address] PCP - General Nurse Practitioner Family 10/26/18 02/04/21 None, Provider, PCP - General UNKNOWN PHYSICIAN SPECIALTY 02/25/24 06/15/24 Wale Valdez DO [address] [place] [address] PCP - General FAMILY PRACTICE 06/16/24 Yoni Whitaker MD Three [facility] [place] [address] [place] [address] [place] Supervisor Order Takers CARDIOVASCULAR DISEASE 01/26/19 documented as of this encounter
--- OUTSIDE RECORDS SUMMARY | 2025-02-12 10:50 | XMS_ITS | Clinical Summary ---
Author Organization [facility] Address [address] [place] [address] Care Team Providers Care Therapy Coordinator Name Role Phone Alison Haastequila Peterson APRN-SHIPPING RECEIVING MANAGER Primary Care Provider Source Comments [facility],non-owned Affiliates and Associated Physician Practices is amultiple site organization consisting of ambulatory clinics and hospital sitesin [place], [place], [place] and [place]. This disclosure is being madepursuant to the Care Everywhere program and may not contain all information available regarding this patient. Last updated 18.[facility] Allergies Active Allergy Reactions Criticality Noted Date Comments Citalopram Other High 12/02/2017 No reaction stated does not remember Diclofenac Sodium Diarrhea,GI Discomfort,Vomiting High 01/18/2018 Duloxetine Angioedema High 04/02/2018 Swelling of face just quit taking Metformin Diarrhea High 03/29/2018 Oxcarbazepine Nausea and/or Vomiting High 02/02/2022 Severe X5 days Penicillins Urticaria Medium 02/04/2016 Seasonal Other Low 11/23/2017 Itchy eyes Medications * Be aware that medications may not be up to date on this document. Alwaysverify current medications with the patient. sertraline (ZOLOFT) 50 MG tablet Take 50 mg by mouth once daily 1 Active pregabalin (LYRICA) 200 MG capsule Take 300 mg by mouth 2 times daily 1 Active levothyroxine (SYNTHROID) 50 MCG tablet TAKE 1 TABLET BY MOUTH EVERY DAY 1 Active HUMALOG vial Inject 1 Units subcutaneously 3 times daily before meals Sliding scale humalog vs amalog all depending on insurance 1 Active insulin lispro (ADMELOG) 100 UNIT/ML vial Inject 1 Units subcutaneously 3 times daily before meals Sliding scale admelog vs humalog all depending on insurance 0 Active insulin glargine (LANTUS) pen Inject 15 Units subcutaneously 2 times daily 0 Active hydrOXYzine hcl (ATARAX) 50 MG tablet TAKE 1 TABLET BY MOUTH NIGHTLY NEEDED (INSOMNIA). 1 Active glimepiride (AMARYL) 1 MG tablet Take 1 mg by mouth once daily 1 Active JARDIANCE 25 MG tablet Take 25 mg by mouth every morning 1 Active albuterol HFA (PROVENTIL;SANTO TOLIN;PROAIR) 108 (90 Base) MCG/ACT inhaler INHALE 2 PUFFS EVERY 6 HOURS NEEDED FOR WHEEZING 0 Active amantadine (SYMMETREL) 100 MG capsule TAKE ONE CAPSULE BY MOUTH IN THE MORNING AND 1 CAPSULE AT NOON 0 Active atorvastatin (LIPITOR) 40 MG tablet Take 40 mg by mouth once daily 0 Active solifenacin (VESICARE) 10 MG tablet Take 10 mg by mouth once daily 1 Active ertugliflozin (STEGLATRO) 5 MG tablet Take 5 mg by mouth once daily Active omeprazole (PRILOSEC) 20 MG capsule Take 20 mg by mouth 2 times daily Active Other 1 Dose by Intravenous route Orcavis injection 2 times yearly for MS Active oxyCODONE-acet aminophen (PERCOCET) 5-325 MG tablet Take 1 (one) tablet by mouth every 6 hours as needed for Pain 84 tablet 2 Active docusate sodium (COLACE) 100 MG capsule Take 1 (one) capsule by mouth 2 times daily 60 capsule 2 2 Active Active Problems Problem Noted Date Diagnosed Date Hyperlipidemia 08/04/2018 Overview (05/14/2021): Date Onset: 08/04/2018 COPD (chronic obstructive pulmonary disease) 12/2016 Multiple sclerosis 02/05/2016 Overview (05/14/2021): Note: Dr. Acosta in [place] Date Onset: 2011 Type 2 diabetes mellitus 02/05/2016 Overview (05/14/2021): Date Onset: 11/23/2017 Anxiety 02/04/2016 Depression 02/04/2016 Hypothyroidism (acquired) 02/04/2016 Overview (05/14/2021): Date Onset: 11/23/2017 Immunizations Immunization Administration Dates Next Due Covid Moderna primary monova lent 12+ yr 0.5mL 09/30/2021,02/17/2021,01/20/2021 INFLUENZA VACCINE 10/15/2021,,10/10/2019,2015 PNEUMOCOCCAL PPSV23 10/21/2012 Family History Medical History Relation Name Comments Diabetes - Gestational Father High Blood Pressure Father CAD (Coronary Artery Disease) Mother Diabetes - Gestational Mother High Blood Pressure Mother Relation Name Status Comments Father Mother Social History Tobacco Use Types Packs/Day Years Used Date Smoking Tobacco: Every Day Cigarettes Smokeless Tobacco: Never Tobacco Cessation:Ready to Q uit: Yes; Counseling Given: Yes Alcohol Use Standard Drinks/Week Comments Never 0 (1 standard drink = 0.6 oz pur e alcohol) Comments No Sex and Gender Information Value Date Recorded Sex Assigned at Not on file Legal Sex Female 6:16 AM INDUSTRIAL ENG Gender Identity Not on file Sexual Orientation Not on file Last Filed Vital Signs Vital Sign Reading Time Taken Comments Blood Pressure 140/69 02/04/2022 2:45 PM CDT Pulse 68 02/04/2022 2:45 PM CDT Temperature 37.2 C (98.9 F) 02/04/2022 1:35 PM CDT Respiratory Rate 8 02/04/2022 2:45 PM CDT Oxygen Saturation 90% 02/04/2022 2:45 PM CDT Inhaled Oxygen Concentration - - Weight 62.1 kg (137 lb) 02/04/2022 8:10 AM CDT Height 162.6 cm (5' 4 ) 02/04/2022 8:10 AM CDT Body Mass Index 23.52 02/04/2022 8:10 AM CDT Plan of Treatment Health Maintenance Due Date Last Done Comments COLON MONITORING 1963 COLONOSCOPY - COLON CA SCREENING 1963 CT COLONOGRAPHY - COLON CA SCREENING 1963 FIT - COLON CA SCREENING 1963 FLEX SIG - COLON CA SCREENING 1963 MAMMOGRAM 1963 PAP SMEAR 1963 HIV SCREENING 1978 HEPATITIS C SCREENING 03/01/1981 DTAP/TDAP/TD VACCINES (1 - Tdap) 1982 ZOSTER VACCINE (1 of 2) 2013 PNEUMOCOCCAL VACCINE 50+ (2 of 2 - PCV) 10/21/2013 10/21/2012 DIABETES RETINOPATHY SCREENING 05/14/2021 DIABETES-FOOT EXAM WITH MONOFILAMENT 05/14/2021 DIABETES-HGB A1C 05/14/2021 10/16/2020 DIABETES-SERUM CREATININE 02/02/2023 02/02/2022, Respiratory Syncytial Virus (RSV) Vaccine Pt: or over 60 yrs (1 - Risk 60-74 years 1-dose series) 2023 COLOGUARD (AGES 45-75) - COLON CA SCREENING 01/21/2024 01/20/2021 Colorectal Cancer Screening 01/21/2024 COVID-19 VACCINE ( season) 2024 09/30/2021, 02/17/2021, 01/20/2021 DEPRESSION SCREENING 11/01/2024 DIABETES - URINE PROTEIN SCREENING 11/01/2024 MEDICARE AWV CALENDAR YEAR 2024 INFLUENZA VACCINE (Season Ended) 2025 10/15/2021, 08/15/2020, 10/10/2019, Additional history exists HEPATITIS B VACCINE Aged Out No longe r eligible based on patient's age to complete this topic HIB VACCINE Aged Out No longer eligi ble based on patient's age to complete this topic HPV VACCINE Aged Out No longer eligi ble based on patient's age to complete this topic MENINGOCOCCAL (Group B) VACCINE SHARED DECISION-MAKING Aged Out No longer eligible based on patient's age to complete this topic MENINGOCOCCAL GROUPS A/C/Y/W VACCINE Aged Out No longer eligible based on patient's age to complete this topic Medical Devices Implanted Type Area Windows Systems Administrator Device Identifier Shelf Expiration Date Model / Serial / Lot Graft Bone Crstn Asr Abelino Engel dt 14 - [id number] Implanted:Qty: 1 on 02/04/2022 by Guadalupe Stiles MD at [facility] N/A: Spine Cervical Spinal [employer] 09/10/2024 [id number] / [id number] / [id number] Screw 3.5mm 15mm Jennifer Slf Drl Spne Crv Implanted:Qty: 3 on 02/04/2022 by Guadalupe Stiles MD at [facility] N/A: Spine Cervical Med[employer] [id number] / / Plate 1 Lvl Spne Crv Ant 21mm Zevo Ti Implanted:Qty: 1 on 02/04/2022 by Guadalupe Stiles MD at [facility] N/A: Spine Cervical Medtronic Sofamor [employer] Spine [id number] / / Screw 3.5mm 13mm Va Slf Drl Spne Crv Ant Implanted:Qty: 1 on 02/04/2022 by Guadalupe Stiles MD at [facility] N/A: Spine Cervical Medtronic [employer] [id number] / / Procedures Procedure Name Priority Date/Time Associated Diagnosis Comments BASIC METABOLIC PANEL (CALCIUM TOTAL) Routine 02/02/2022 2:19 PM CDT Pre-op testing from Last 3 Months or Most Recently Relevant to Health Maintenance Results * (ABNORMAL) BASIC METABOLIC PANEL (CALCIUM TOTAL) (02/02/2022 2:19 PM CDT) BUN 16 7 - 26 mg/dL 02/02/2022 3:23 PM CDT [facility] Creatinine 0.99(H) 0.56 - 0.96 mg/dL 02/02/2022 3:23 PM CDT [facility] Sodium 145 136 - 145 mmol/L 02/02/2022 3:23 PM CDT [facility] Potassium 3.4(L) 3.5 - 4.5 mmol/L 02/02/2022 3:23 PM [facility] Chloride 105 98 - 107 mmol/L 02/02/2022 3:23 PM [facility] CO2 26 22 - 29 mmol/L 02/02/2022 3:23 PM [facility] Glucose 63(L) 70 - 115 mg/dL 02/02/2022 3:23 PM [facility] Calcium 8.9 8.4 - 10.2 mg/dL 02/02/2022 3:23 PM [facility] Anion Gap 17 8 - 18 02/02/2022 3:23 PM [facility] BUN/Creatinine Ratio 16 7 - 23 02/02/2022 3:23 PM [facility] Osmolality Calculated 299 270 - 300 mOsm/kg 02/02/2022 3:23 PM [facility] eGFR by CKD-EPI 66(L) >=90 mL/min/1.7 3 m2 02/02/2022 3:23 PM [facility] Blood BLOOD SPECIMEN / Unknown Lab Venipuncture / Unknown 02/02/2022 2:19 PM CDT 02/02/2022 2:57 PM CDT Guadalupe Stiles MD LAB - CHEMISTRY ORDERABLES Allegra wei Result [facility] [address] [place] [address], [facility] [phone] from Last 3 Months or Most Recently Relevant to Health Maintenance Insurance [facility] MANAGED MEDICARE ADV [facility] MANAGED MEDICARE ADV [place] [id number] Care Teams Therapy Coordinator Relationship Specialty Start Date End Date Martha Haas, JEFFREY-ANDRESSA [address] [place] [address] PCP - General 02/12/22
--- OUTSIDE RECORDS SUMMARY | 2025-02-12 10:50 | XMS_ITS | Encounter Summary ---
Author Organization [facility] Address [address] [place] [address] Care Team Providers Care Horser Up Name Role Phone Lachelle Ruelas Primary Care Provider [phone] Yoni Whitaker MD Unavailable [phone] None, Provider Primary Care Provider Unavaila Wale Appiah DO Primary Care Provider [phone] Encounter Details Date Type Department Care Team (Late st Contact Info) Description 01/15/2020 Abstract [facility] [address] [place] [address] Lachelle Ruelas FNP [address] [place] [address] Social History Tobacco Use Types Packs/Day Years Used Date Smoking Tobacco: Every Day Cigarettes 0.3 40 Smokeless Tobacco: Never Alcohol Use Standard Drinks/Week Comments No 0 (1 standard drink = 0.6 oz pur e alcohol) AUDIT-C Answer Date Recorded Frequency of Alcohol Consumption Never 12/30/2018 Average Number of Drinks Not on file 019 Frequency of Binge Drinking Not on file 11/2018 Comments No Sex and Gender Information Value Date Recorded Sex Assigned at Not on file Legal Sex Female 7:22 PM CDT Gender Identity Not on file Sexual Orientation Not on file documented as of this encounter Plan of Treatment Not on file documented as of this encounter Visit Diagnoses Not on filedocumented in this encounter Care Teams Horser Up Relationship Specialty Start Date End Date Lachelle Ruelas FNP [address] [place], [place] [id number] PCP - General Nurse Practitioner Family 10/26/18 02/04/21 None, Naima, PCP - General UNKNOWN PHYSICIAN SPECIALTY 02/25/24 06/15/24 Wale Valdez DO [address] [place] [address] PCP - General FAMILY PRACTICE 06/16/24 Yoni Whitaker MD [facility] [address] [place] [address] [place] Miniature Set Constructor CARDIOVASCULAR DISEASE 01/26/19 documented as of this encounter
--- OUTSIDE RECORDS SUMMARY | 2025-02-12 10:50 | XMS_ITS | Clinical Summary ---
Author Organization [facility] Address [address] [place] [address] Care Team Providers Care Procurement Analyst Name Role Phone Yoni Whitaker MD Unavailable [phone] Wale Valdez DO Primary Care Provider [phone] Allergies Active Allergy Reactions Criticality Noted Date Comments Citalopram Other (see comment) 12/02/2017 Diclofenac Sodium GI Upset,Vomiting,Diarrhea Duloxetine Swelling 04/02/2018 Penicillins Other (see comment),Unknown 016 Seasonal Unknown 11/23/2017 Medications calcium carbonate-vitami n D (CALCIUM 600+D) 600-200 MG-UNIT Tab Take 1 tablet by mouth 2 (two) times daily. 12/21/19 18 Active Cholecalciferol (VITAMIN D3) 2000 units Cap Take 1 capsule by mouth daily. 12/21/19 18 Active amantadine 100 MG capsule TAKE ONE CAPSULE BY MOUTH IN THE MORNING AND 1 CAPSULE AT NOON 5 04/26/20 19 Active glatiramer 20 MG/ML injection 05/08/20 19 Active IPRATROPIUM-ALBU TEROL 0.5-2.5 (3) MG/3ML SolutionIndicati ons:COPD with acute exacerbation ([facility]) USE 1 VIAL BY NEBULIZATION EVERY 4 (FOUR) HOURS NEEDED. 360 mL 1 08/22/20 19 Active Blood Glucose Monitoring Suppl (BLOOD GLUCOSE MONITOR SYSTEM) w/Device KitIndications:T ype 2 diabetes mellitus with hyperglycemia, with long-term current use of insulin ([facility]) Test TID and as needed. (E11.40) 1 kit 09/19/20 19 Active ADMELOG 100 UNIT/ML injection (VIAL)Indication s:Type 2 diabetes mellitus with other specified complication, unspecified whether residential insulin use ([facility]) INJECT 7-10 UNITS SUBCUTANEOUSLY AT MEALS 10 mL 06/10/20 20 Active EASY TOUCH INSULIN SYRINGE 31G X 5/16 0.3 ML MiscIndications: Type 2 diabetes mellitus with hyperglycemia, with long-term current use of insulin ([facility]) USE 3 TIMES DAILY 100 each 3 06/10/20 20 Active ONETOUCH ULTRA test stripIndications :Type 2 diabetes mellitus with hyperglycemia, with long-term current use of insulin ([facility]) USE DAILY AND NEEDED TO CHECK BLOOD SUGARS. 100 strip 2 07/09/20 20 Active ONETOUCH DELICA LANCETS 33G MiscIndications: Type 2 diabetes mellitus with hyperglycemia, with long-term current use of insulin ([facility]) TEST ONCE DAILY AND NEEDED. 100 each 2 07/09/20 20 Active solifenacin 5 MG tablet Take 5 mg by mouth daily. 07/01/20 20 Active lidocaine 4 % patchIndications :Polyneuropathy associated with underlying disease ([facility]),Chroni c pain disorder Place 1 patch onto the skin daily. Remove & Discard patch within 12 hours or as directed by MD 30 patch 07/12/20 20 Active ALBUTEROL SULFATE HFA 108 (90 Base) MCG/ACT inhalerIndicatio ns:COPD exacerbation ([facility]) INHALE 2 PUFFS EVERY 6 HOURS NEEDED FOR WHEEZING 8.5 Inhaler 1 08/14/20 20 Active pregabalin 200 MG capsuleIndicatio ns:Type 2 diabetes mellitus with diabetic neuropathy, with long-term current use of insulin ([facility]) Take 1 capsule (200 mg total) by mouth 3 (three) times daily. 270 capsule 1 09/24/20 20 Active atorvastatin 40 MG tabletIndication s:Uncontrolled diabetes mellitus due to underlying condition with diabetic neuropathic arthropathy, with long-term current use of insulin Take 1 tablet (40 mg total) by mouth nightly at bedtime. 30 tablet 2 10/18/20 20 Active insulin glargine 100 UNIT/ML injection (PEN)Indications :Type 2 diabetes mellitus with other specified complication, unspecified whether strategy director insulin use ([facility]) Inject 25 Units into the skin nightly at bedtime. 9 mL 1 10/18/20 20 Active nicotine polacrilex 2 MG lozengeIndicatio ns:Tobacco dependence due to cigarettes Take 1 lozenge (2 mg total) by mouth as needed for Smoking cessation. 168 lozenge 11/05/19 21 Active B-D UF III MINI PEN NEEDLES 31G X 5 MM MiscIndications: Type 2 diabetes mellitus with other specified complication, unspecified whether strategy director insulin use ([facility]) USE NIGHTLY WITH BASAGLAR PEN 100 Container 1 11/13/19 21 Active JARDIANCE 25 MG tabletIndication s:Type 2 diabetes mellitus with other specified complication, unspecified whether strategy director insulin use ([facility]) TAKE 1 TABLET BY MOUTH EVERY DAY 30 tablet 01/10/20 21 Active GLIMEPIRIDE 1 MG tabletIndication s:Uncontrolled diabetes mellitus due to underlying condition with diabetic neuropathic arthropathy, with long-term current use of insulin TAKE 1 TABLET BY MOUTH EVERY MORNING BEFORE BREAKFAST 30 tablet 01/14/20 21 Active HYDROXYZINE 50 MG tabletIndication s:Anxiety TAKE 1 TABLET BY MOUTH NIGHTLY NEEDED (INSOMNIA). 30 tablet 01/14/20 21 Active LEVOTHYROXINE 50 MCG tabletIndication s:Hypothyroidism (acquired) TAKE 1 TABLET BY MOUTH EVERY DAY 30 tablet 01/14/20 21 Active metFORMIN ER, [facility], (FORTAMET) 500 MG 24 hr tablet Take 1 tablet (500 mg total) by mouth daily with breakfast. Active topiramate (TOPAMAX) 100 MG tablet Take 1 tablet (100 mg total) by mouth 2 (two) times daily. Active Active Problems Problem Noted Date Diagnosed Date Retinopathy due to secondary diabetes mellitus, without macular edema, with mild nonproliferative retinopathy ([facility]) 01/31/2020 Controlled substance agreement signed 09/14/2019 Assessment & Plan (09/14/2019 11:55 AM RESOURCE DEVELOPMENT MANAGER): Agreement for gabapentin signed on 09/14/19. Left lower lobe pulmonary nodule 01/11/2019 Smoker 01/11/2019 Hyperlipidemia 08/04/2018 Overview (09/21/2018): Date Onset: 08/04/2018 Osteopenia determined by x-ray 12/21/2017 Overview (09/21/2018): Date Onset: 12/21/2017 COPD (chronic obstructive pu lmonary disease) ([facility]) 04/02/2017 Multiple sclerosis ([facility]) 02/05/2016 Overview (09/21/2018): Note: Dr. Acosta in [place] Date Onset: 2011 Type 2 diabetes mellitus ([facility]) 02/04 Overview (09/21/2018): Date Onset: 11/23/2017 Anxiety 02/04/2016 Arthritis, degenerative 02/04/2016 Depression 02/04/2016 Hypothyroidism (acquired) 02/04/2016 Overview (09/21/2018): Date Onset: 11/23/2017 Resolved Problems Problem Noted Date Diagnosed Date Resolved Date Mammographic microcalcification 03/09/2018 07/09/2020 Immunizations Immunization Administration Dates Next Due Influenza (Generic) 08/12/2016 Influenza Adult (Generic) 08/15/2020,10/10/2019 Pneumococcal (Pneumovax 23) 10/21/2012 Family History Medical History Relation Comments Diabetes Brother 1 Cancer Father Colon Diabetes Father Emphysema Father Heart Disease Father Hypertension Father Diabetes Mother Heart Disease Mother Hypertension Mother Breast Cancer Neg Hx Relation Status Comments Brother 1 Alive Brother 2 Alive Father (Age 82) Mother (Age 65) Sister Alive Social History Tobacco Use Types Packs/Day Years Used Date Smoking Tobacco: Former Cigarettes 0.3 40 Smokeless Tobacco: Never Tobacco Cessation:Counseling Given: Not Answered Alcohol Use Standard Drinks/Week Comments No 0 [...] Sign Reading Time Taken Comments Blood Pressure 147/76 04/05/2024 9:45 AM CDT Pulse 68 04/05/2024 9:45 AM CDT Temperature 36.6 C (97.8 F) 04/05/2024 7:43 AM CDT Respiratory Rate 20 04/05/2024 7:43 AM CDT Oxygen Saturation 95% 04/05/2024 9:45 AM CDT Inhaled Oxygen Concentration - - Weight 62.6 kg (138 lb) 03/30/2024 10:17 AM CDT Height 162.6 cm (5' 4 ) 03/30/2024 10:17 AM CDT Body Mass Index 23.69 03/30/2024 10:17 AM CDT Plan of Treatment Health Maintenance Due Date Last Done Comments Cervical Cancer Screening Pap Smear (Age 30 to 64) Every 3 Years 1963 Colorectal Cancer Screening Colonoscopy (10 Years) 1963 Kidney Health Evaluation 1963 Annual Physical 1966 Hepatitis C 1981 DTaP, Tdap and Td Vaccines (1 - Tdap) 1982 Cervical Cancer Screening Pap with HPV Testing (Age 30 to 64) Every 5 Years 1993 Cervical Cancer Screening with HPV 1993 Zoster Vaccines (1 of 2) 2013 Pneumococcal Vaccine: Pediatrics (0 to 5 Years) and At-Risk Patients (6 to 49 Years) (2 of 2 - PCV) 10/21/2013 10/21/2012 Lipid Panel 01/15/2021 01/16/2020, 09/01, 05/10/2019, Additional history exists Hemoglobin A1C 04/16/2021 10/16/2020, 06/02, 01/16/2020, Additional history exists Diabetes: Retinopathy Eye Exam 01/09/2022 01/10/2020, 07/20/2019 Mammogram Screening 08/23/2022 08/23/2020, 9 RSV Immunization or 60+ Years (1 - Risk 60-74 years 1-dose series) 2023 COVID-19 Vaccine ( - season) 2024 09/30/2021, 02/17/2021, 01/20/2021 PHQ-2 (Physician [place]) 11/01/2024 Colorectal Cancer Screening FIT-DNA (3 Years) Discontinued 01/20/2021, 01/20/2021 Meningococcal B Vaccine Aged Out No l onger eligible based on patient's age to complete this topic Meningococcal Vaccine Aged Out No bairon patel eligible based on patient's age to complete this topic RSV Immunizations Under 20 Months Aged Out No longer eligible based on patient's age to complete this topic Medical Devices Implanted Type Area Police Magistrate Device Identifier Shelf Expiration Date Model / Serial / Lot Iol Tecnis Simplicity Dcb00 - [id number] Implanted:Qty: 1 on 03/01/2024 by Griselda Tran MD at [facility] [employer] 10/11/2025 DCB00 / / [id number] Iol [employer] Simplicity Dcb00 - [id number] Implanted:Qty: 1 on 04/05/2024 by Griselda Tran MD at [facility] [employer] Right: Eye [employer] DCB00 12/05/2026 DCB00 / / NONE Procedures Procedure Name Priority Date/Time Associated Diagnosis Comments COLOGUARD (SCAN ORDER) Routine 01/20/2021 HEMOGLOBIN, GLYCOSYLATED Routine 10/16/2020 7:45 AM RESOURCE DEVELOPMENT MANAGER Essential hypertension, malignant MG SCREENING W LUCINA TATE DIGI Routine 08/23/2020 4:15 PM CDT Encounter for screening breast examination LIPID PANEL Routine 01/16/2020 10:22 AM CDT Diabetic neuropathy Encounter for long-term (current) use of insulin DILATED EYE EXAM (SCAN) Routine 01/10/2020 from Last 3 Months or Most Recently Relevant to Health Maintenance Results * COLOGUARD (SCAN) (01/20/2021) COLOGUARD NEGATIVE [facility] Stool specimen (specimen) 01/20/2021 us Documents Scanned SCANNING Final Result [facility] * (ABNORMAL) HEMOGLOBIN, GLYCOSYLATED (10/16/2020 7:45 AM RESOURCE DEVELOPMENT MANAGER) HGB A1C 10.8(H) <5.7 % 10/16/2020 9:32 AM RESOURCE DEVELOPMENT MANAGER [facility] Comment: INCREASED RISK OF DIABETES <5.7% NON-DIABETES 5.7-6.4% INCREASED RISK FOR FUTURE DIABETES > OR = 6.5 CONSISTENT WITH DIABETES STANDARDS OF MEDICAL CARE IN DIABETES-2010 DIABETES CARE, 33(SUPP 1): S1-S61,2009 10/16/2020 7:45 AM RESOURCE DEVELOPMENT MANAGER Lachelle Sweetie Ruelas RESTORATIVE AIDE LABORATORY Final Result [facility] [address] [place] [address], [place] [phone] * MG SCREENING W LUCINA TATE DIGI (08/23/2020 4:15 PM CDT) Anatomical Region Laterality Modality Breast Bilateral Mammography 08/23/2020 4:31 PM CDT Narrative 08/23/2020 4:33 PM CDT IMAGING STUDIES: MG SCREENING W LUCINA TATE DIGI DATE: 08/23/2020 3:30 PM INDICATION: screening. Benign stereotactic core biopsy left breast COMPARISON: 03/03/2019, 12/03/2017. FINDINGS: Bilateral CC and MLO views, digital with CAD. 2-D with 3-D tomosynthesis. Breast compostition: Category C - The breasts are heterogeneously dense, which may obscure small masses. No suspicious microcalcification, worrisome mass or evidence of architectural distortion. No skin thickening or nipple retraction. Benign microcalcifications. CONCLUSION: No mammographic evidence of malignancy. BI-RADS Category 2 - benign findings. Routine screening mammography recommended [facility] BI-RADS Categories: Category 0 - needs additional imaging evaluation. Category 1 - negative. Category 2 - benign findings. Category 3 - probably benign findings, but short interval follow-up is recommended. Category 4 - suspicious abnormality and biopsy should be considered though the lesion may well be benign. Category 5 - highly suggestive of malignancy and appropriate action should be taken. A) A negative report should not delay a biopsy if a dominant or clinically suspicious mass is present. B) Adenosis and dense breasts may obscure an underlying neoplasm. C) Study interpreted with computer aided detection. Interpreted By: Antonio Crespo, 08/23/2020 4:31 PM Lachelle Ruelas RESTORATIVE AIDE MAMMO Final Result * (ABNORMAL) LIPID PANEL (01/16/2020 10:22 AM CDT) CHOLESTEROL 213(H) <200.0 MG/DL 01/16/2020 10:[address] [facility] TRIGLYCERIDES 91 <150 MG/DL 01/16/2020 10:[address] [facility] HDL 46 >40.0 MG/DL 01/16/2020 10:[address] [facility] LDL (CALCULATED) 149(H) <100 MG/DL 01/16/2020 10:[address] [facility] NON HDL CHOLESTEROL 167(H) <130 MG/DL 01/16/2020 10:[address] [facility] CHOL/HDL RATIO 4.6(H) 0.0 - 4.5 01/16/2020 10:[address] [facility] VLDL CALCULATION 18 5 - 55 MG/DL 01/16/2020 10:[address] [facility] LIPID INTERPRETATION 01/16/2020 10:[address] [facility] Comment: NIH CONCENSUS REPORT RECOMMENDATIONS: ADULT CHILD LOW RISK: CHOLESTEROL <200 <170 TRIGLYCERIDE <150 --- HDL >=60 --- LDL <100 <110 BORDERLINE: CHOLESTEROL 200-239 170-199 TRIGLYCERIDE 150-199 --- HDL 40-59 --- LDL 100-159 110-129 HIGH RISK: CHOLESTEROL >=240 >=200 TRIGLYCERIDE >=200 --- HDL <40 --- LDL >=160 >=130 01/16/2020 10:2 2 AM CDT us Lachelle Ruelas RESTORATIVE AIDE LABORATORY Final Result [facility] [address] [place] [address], [place] [phone] * DIABETIC RETINOPATHY EXAM (01/10/2020) us Documents Scanned SCANNING Edited Result - Final [facility] from Last 3 Months or Most Recently Relevant to Health Maintenance Insurance MEDICAID DEPT OF [address] Care Teams Procurement Analyst Relationship Specialty Start Date End Date Wale Valdez DO [address] [place] [address] PCP - General FAMILY PRACTICE 06/16/24 Yoni Whitaker MD [facility] [address] [place] [address] Jorje Lift Supervisor CARDIOVASCULAR DISEASE 01/26/19
--- OUTSIDE RECORDS SUMMARY | 2025-02-12 10:50 | XMS_ITS | Encounter Summary ---
Author Organization [facility] Address [address] [place] [address] Care Team Providers Care Jar Filler Name Role Phone Lachelle Ruelas Primary Care Provider [phone] Yoni Whitaker MD Unavailable [phone] None, Provider Primary Care Provider Unavaila Wale Appiah DO Primary Care Provider [phone] Encounter Details Date Type Department Care Team (Late st Contact Info) Description 07/18/2019 Abstract [facility] [address] [place] [address] Lachelle Ruelas FNP [address] [place] [address] Social History Tobacco Use Types Packs/Day Years Used Date Smoking Tobacco: Every Day Cigarettes 0.5 40 Smokeless Tobacco: Never Alcohol Use Standard Drinks/Week Comments No 0 (1 standard drink = 0.6 oz pur e alcohol) AUDIT-C Answer Date Recorded Frequency of Alcohol Consumption Never 12/30/2018 Average Number of Drinks Not on file 019 Frequency of Binge Drinking Not on file 11/2018 Comments Unknown Sex and Gender Information Value Date Recorded Sex Assigned at Not on file Legal Sex Female 7:22 PM CDT Gender Identity Not on file Sexual Orientation Not on file documented as of this encounter Plan of Treatment Not on file documented as of this encounter Visit Diagnoses Not on filedocumented in this encounter Care Teams Jar Filler Relationship Specialty Start Date End Date Lachelle Ruelas FNP [address] [place], [place] [id number] PCP - General Nurse Practitioner Family 10/26/18 02/04/21 None, Naima, PCP - General UNKNOWN PHYSICIAN SPECIALTY 02/25/24 06/15/24 Wale Valdez DO [address] [place] [address] PCP - General FAMILY PRACTICE 06/16/24 Yoni Whitaker MD [facility] [address] [place] [address] [place] White Washer Piler CARDIOVASCULAR DISEASE 01/26/19 documented as of this encounter
--- OUTSIDE RECORDS SUMMARY | 2025-02-12 10:50 | XMS_ITS | Encounter Summary ---
Author Organization [facility] Address [address] [place] [address] Care Team Providers Care Naval Aircrewman Name Role Phone Lachelle Ruelas Primary Care Provider [phone] Yoni Whitaker MD Unavailable [phone] None, Provider Primary Care Provider Unavaila Wale Appiah DO Primary Care Provider [phone] Encounter Details Date Type Department Care Team (Late st Contact Info) Description 08/01/2019 Abstract [facility] [address] [place] [address] Lachelle Ruelas FNP [address] [place] [address] Social History Tobacco Use Types Packs/Day [...] on filedocumented in this encounter Care Teams Naval Aircrewman Relationship Specialty Start Date End Date Lachelle Ruelas FNP [address] [place], [place] [id number] PCP - General Nurse Practitioner Family 10/26/18 02/04/21 None, Naima, PCP - General UNKNOWN PHYSICIAN SPECIALTY 02/25/24 06/15/24 Wale Valdez DO [address] [place] [address] PCP - General FAMILY PRACTICE 06/16/24 Yoni Whitaker MD [facility] [address] [place] [address] [place] Lump Machine Operator CARDIOVASCULAR DISEASE 01/26/19 documented as of this encounter
--- OUTSIDE RECORDS SUMMARY | 2025-02-12 10:50 | XMS_ITS | Encounter Summary ---
Author Organization [facility] Address [address] [place] [address] Care Team Providers Care Auto Parts Salesperson Name Role Phone Ada Estrada Primary Care Provider [phone] Lachelle Ruelas Primary Care Provider [phone] Yoni Whitaker MD Unavailable [phone] None, Provider Primary Care Provider Unavaila Wale Appiah DO Primary Care Provider [phone] Encounter Details Date Type Department Care Team (Late st Contact Info) Description 05/19/2017 Abstract [facility] [address] [place], [place] [id number] , Generic Conversion, Social History Tobacco Use Types Packs/Day Years Used Date Smoking Tobacco: Smoker, Current Status Unknown Comments Unknown Sex and Gender Information Value Date Recorded Sex Assigned at Not on file Legal Sex Female 7:22 PM CDT Gender Identity Not on file Sexual Orientation Not on file documented as of this encounter Plan of Treatment Not on file documented as of this encounter Visit Diagnoses Not on filedocumented in this encounter Care Teams Auto Parts Salesperson Relationship Specialty Start Date End Date Ada Estrada FNP [address] [place] [address] PCP - General NURSE PRACTITIONER 09/19/18 10/25/18 Lachelle Ruelas FNP [address] [place] [address] PCP - General Nurse Practitioner Family 10/26/18 02/04/21 None, Provider, PCP - General UNKNOWN PHYSICIAN SPECIALTY 02/25/24 06/15/24 Wale Valdez DO [address] [place] [address] PCP - General FAMILY PRACTICE 06/16/24 Yoni Whitaker MD [facility] [address] [place] [address] [place] Engrosser CARDIOVASCULAR DISEASE 01/26/19 documented as of this encounter
--- OUTSIDE RECORDS SUMMARY | 2025-02-12 10:50 | XMS_ITS | Clinical Summary ---
Author Organization [facility] Address [address] [place] [address] Care Team Providers Care Barkeep Name Role Phone Lachelle Ruelas [facility] Primary Care Provider [phone] Allergies No known active allergies Medications insulin lispro protamine-lispr o (HumaLOG MIX 50-50) 100 unit/mL (50-50) pen syringe Inject 15-20 Units by subcutaneous injection 3 times daily with meals. Active insulin glargine (LANTUS) 100 unit/mL pen syringe Inject 25 Units by subcutaneous injection daily at bedtime. Active levothyroxine 50 mcg tablet Take 50 mcg by mouth daily doctor of nurse anesthesia practice. Active metFORMIN (GLUCOPHAGE) 1,000 mg tablet Take 1,000 mg by mouth 2 times daily with meals. Active Active Problems Problem Noted Date Diagnosed Date Mammographic microcalcification 03/09/2018 Family History Medical History Relation Name Comments Colon Cancer Brother 1 Diabetes Father Heart Disease Father Diabetes Mother Heart Disease Mother Relation Name Status Comments Brother 1 Alive Brother 2 Alive Brother 3 Alive Father Mother Social History Tobacco Use Types Packs/Day Years Used Date Smoking Tobacco: Every Day Cigarettes Smokeless Tobacco: Never Tobacco Cessation:Ready to Q uit: Yes Comments:down to 3 a day Alcohol Use Standard Drinks/Week Comments No 0 (1 standard drink = 0.6 oz pur e alcohol) Comments No Sex and Gender Information Value Date Recorded Sex Assigned at Not on file Legal Sex Female 4:33 PM CDT Gender Identity Not on file Sexual Orientation Not on file Last Filed Vital Signs Vital Sign Reading Time Taken Comments Blood Pressure 103/71 03/22/2018 2:11 PM CDT Pulse 112 03/22/2018 2:11 PM CDT Temperature 37.9 C (100.3 F) 03/22/2018 2:11 PM CDT Respiratory Rate - - Oxygen Saturation 93% 03/22/2018 2:11 PM CDT Inhaled Oxygen Concentration - - Weight 52.8 kg (116 lb 8 oz) 03/22/2018 2:11 PM CDT Height 163.8 cm (5' 4.5 ) 03/22/2018 2:11 PM CDT Body Mass Index 19.69 03/22/2018 2:11 PM CDT Plan of Treatment Health Maintenance Due Date Last Done Comments DTAP/TDAP/TD VACCINES (1 - Tdap) 1982 HPV/Cotest (21-29) 1984 PAP SMEAR 1984 CERVICAL CANCER SCREENING 1993 HPV/Cotest (30-65) 1993 PAP SMEAR 1993 COLORECTAL SCREENING 2008 Colorectal Cancer Screening 2008 FIT-DNA Q 3 years 2008 FIT/FOBT Q 1 year 2008 Flex Sig/CT Colonography Q 5 years 2008 ZOSTER VACCINE (1 of 2) 2013 BREAST CANCER SCREENING 03/16/2019 03/16/20 18, 03/01/2018 INFLUENZA VACCINE (#1) 2024 RSV VACCINE (60+ or ) (1 - 1-dose 75+ series) 2038 PNEUMOCOCCAL VACCINE 0-49 YEARS Aged Out No longer eligible b ased on patient's age to complete this topic Procedures Procedure Name Priority Date/Time Associated Diagnosis Comments MAMMOGRAM REPORT Routine 03/16/2018 from Last 3 Months or Most Recently Relevant to Health Maintenance Results * MAMMOGRAM REPORT (03/16/2018) us Abstract Provider MAMMO ORDERABLES Final Result [facility] from Last 3 Months or Most Recently Relevant to Health Maintenance Care Teams Barkeep Relationship Specialty Start Date End Date Lachelle Ruelas FNP [address] [place] [address] [place] [address] PCP - General NURSE PRACTITIONER 03/09/18
--- OUTSIDE RECORDS SUMMARY | 2025-02-12 10:50 | XMS_ITS | Data Portability ---
Author Organization [facility], [address] [facility] ([place]) Address [address] 4th [place] [address] Care Team Providers Care Airline Ticket Agent Name Role Phone EDWARDO MAXIMILIAN Primary Care Provider Assessment Encounter Date Assessment Date Assessment LastModified by Organization Details LastModified Time 05/08/2024 05/08/2024 In summary, patient s MS is stable but she would like to increase her gabapentin dosage a bit for her leg pains. PLAN 1. Ocrevus infusion today. 2. We will increase gabapentin to 300 mg three times a day. 3. Follow up in six months. stephanie [email or web address] Not available 05/08/2024 13:31:58 10/16/2024 10/16/2024 In summary, patient s MS is stable. PLAN 1. Ocrevus infusion today. 2. Continue pregabalin and topiramate for management of MS-related pain and spasm. 3. Follow up in six months when she comes for her next Ocrevus infusion. Patient and are aware that I will be retiring at the end of the year, and I will be transferring care to [facility] of our department. [email or web address] Not available 10/16/2024 13:19:50 Plan of Treatment Reminders Order Date Submit Date Provider Last Modified By Organization Details Last Modified Time Details Appointments Establis hed Patient 20.EST 2024 09:25A M [facility] Not available Not available Not available Infusion 180.PRO 2024 09:45A M Neurology Not available Not available Not available Lab None recorded . Referral None recorded . Procedures None recorded . Surgeries None recorded . Imaging None recorded . Medication Orders diphenhy dramine 50 mg/mL injectio n solution 2023 [facility] #[id number], [address] [place] [address], [id number], 10/16/2024 17:28:59 methylpr ednisolo ne sodium succinat e 125 mg solution for injectio n 2023 [facility] #60215, [address] [place] [address], [id number], 10/16/2024 17:28:59 Ocrevus 30 mg/mL intraven ous solution 2023 [facility] #80379, [address] [place] [address], [id number], 10/16/2024 17:28:59 topirama te 100 mg tablet 2023 [facility] #72201, [address] [place] [address], [id number], 10/16/2024 12:26:41 pregabal in 300 mg capsule 2023 [facility] #16253, [address] [place] [address], [id number], 10/16/2024 12:27:34 sertrali ne 50 mg tablet 2023 024 [facility] #38361, [address] [place] [address], [id number], 10/16/2024 12:45:43 diphenhy dramine 50 mg/mL injectio n solution 2023 024 [facility] #93912, [address] [place] [address], [id number], 05/08/2024 17:37:00 methylpr ednisolo ne sodium succinat e 125 mg solution for injectio n 2023 024 [facility] #19784, [address] [place] [address], [id number], 05/08/2024 17:37:00 Ocrevus 30 mg/mL intraven ous solution 2023 024 [facility] #47769, [address] [place], [id number], 05/08/2024 17:37:00 gabapent in 300 mg capsule 2023 024 [facility] #46569, [address] [place], [place], [id number], 10/16/2024 13:40:44 Patient TargetsNo targets recorded. Patient InstructionsNo instructions recorded. Reason for Referral None Reported. Problems Name Problem SNOMED Code Status Onset Date Resolution Date Notes Provider Name and Address Organization Details Recorded Time Pain in bilateral legs 52739375488203 108 Active 2023 Rocky Acosta MD [facility], [address] [place] [address] 4 12:26:11 Pain in limb 42849598 Active 2023 Amber Topete [facility] 4 09:30:28 Multiple sclerosis 23797857 Active 2023 Nichole Coulter [facility] 4 15:17:28 Problem Notes None recorded. Procedures Surgical History Date Name Laterality Status Provider Name and Address Organization Details Recorded Time 4 [facility] Infusion Record-Neuro completed Ashleigh Ca [facility] 10/16/2024 16:08:26 4 SC Infusion Record-Neuro completed Sara Drake [facility] 05/08/2024 17:23:08 4 SC Infusion Record-Neuro cancelled Makayla Dewitt [facility] 04/20/2024 07:05:13 delivery completed Not Available Health Note 05/02/2024 12:30:36 Imaging Results None recorded. Procedure Notes None recorded. Medical Equipment None Reported. Allergies Allergen ID Allergen Name Allergen Category Reaction Reaction Severity Criticality Documentation Date Start Date Code Code System Note Provider Name and Address Organization Details Recorded Time 718161 Product containin g penicilli n (product) medicatio n Not available Not available Not available 11/29/20232011 31798 8001 SNOMED Not Available Not Available Not Available 880041 citalopra m medicatio n Not available Not available Not available 11/29/20232018 2556 RxNorm Not Available Not Available Not Available 167500 diclofena c sodium medicatio n Not available Not available Not available 11/29/20232018 80508 4 RxNorm Comme nt: Annot ation s: MAXEI NER (EXT) , SHERINE NDER 26Sep 2018 11:07 AM GI Upset ,Vomi ting and Diarr hea; ; Not Available Not Available Not Available 502342 duloxetin e Not available Not available Not available Not available 11/29/20232018 69737 RxNorm Comme nt: Annot ation s: MAXEI NER (EXT) , SHERINE NDER 26Sep 2018 11:07 AM swell ing; ; Not Available Not Available Not Available 121741 metformin medicatio n Not available Not available Not available 11/29/20232018 6809 RxNorm Comme nt: Annot ation s: MAXEI NER (EXT) , SHERINE NDER 26Sep 2018 11:08 AM diarr hea; ; Not Available Not Available Not Available Medications Name Sig Start Date Stop Date Status Note LastModified by Organization Details LastModified Time metformin 500 mg tablet TAKE 1 TABLET BY MOUTH TWICE DAILY active Not Available Not Available No t Available neomycin-po lymyxin-hyd rocort 3.5 mg/mL-10,00 0 unit/mL-1 % ear solution INSTILL 4 DROPS INTO LEFT EAR EVERY 8 HOURS active Not Available Not Available No t Available atorvastati n 80 mg tablet TAKE 1 TABLET BY MOUTH EVERY DAY active Not Available Not Available No t Available azithromyci n 250 mg tablet active Not Available Not Available Not Available sucralfate 1 gram tablet TAKE 1 TABLET BY MOUTH THREE TIMES DAILY BEFORE MEALS NEEDED FOR NAUSEA OR VOMITING active Not Available Not Available No t Available hydroxyzine HCl 50 mg tablet TAKE 1 TABLET BY MOUTH AT BEDTIME NEEDED FOR SLEEP active Not Available Not Available No t Available diphenhydra mine 50 mg/mL injection solution inject 25mg intraveno usly prior to Ocrevus 2023 active Not Available Not Available Not Avai lable Ear Wax Removal Drops 6.5 % INSTILL 5 DROPS INTO RIGHT EAR ONCE DAILY FOR 4 DAYS active Not Available Not Available No t Available levothyroxi ne 50 mcg tablet TAKE 1 TABLET BY MOUTH DAILY active Not Available Not Available No t Available pantoprazol e 40 mg tablet,cleopatra yed release TAKE 1 TABLET BY MOUTH EVERY MORNING FOR 6 WEEKS active Not Available Not Available No t Available gabapentin 300 mg capsule TAKE 1 CAPSULE BY MOUTH THREE TIMES DAILY 10/16 completed Not Available Not Available Not Available omeprazole 20 mg capsule,del ayed release TAKE 1 CAPSULE BY MOUTH DAILY active Not Available Not Available No t Available methylpredn isolone sodium succinate 125 mg solution for injection inject 125mg intraveno usly prior to Ocrevus 2023 active Not Available Not Available Not Avai lable insulin lispro (U-100) 100 unit/mL subcutaneou s solution INJECT 7-10 UNITS SUBCUTANE OUSLY PER SLIDING SCALE WITH MEALS active Not Available Not Available No t Available topiramate 100 mg tablet TAKE 1 TABLET BY MOUTH TWICE A DAY 2023 active Not Available Not Available Not Avai lable sertraline 50 mg tablet Take 1 tablet every day by oral route at bedtime. 2023 active Not Available Not Available Not Avai lable insulin lispro (U-100) 100 unit/mL subcutaneou s pen INJECT 7-10 UNITS SUBCUTANE OUSLY PER SLIDING SCALE WITH MEALS DIRECTED active Not Available Not Available No t Available pregabalin 300 mg capsule Take 1 capsule twice daily. 2024 active Not Available Not Available Not Avai lable cholecalcif rochelle (vitamin D3) 1,250 mcg (50,000 unit) capsule TAKE ONE CAPSULE BY MOUTH EVERY 7 DAYS THEN FOLLOW UP WITH BLOODWORK active Not Available Not Available No t Available Lantus Solostar U-100 Insulin 100 unit/mL (3 mL) subcutaneou s pen INJECT 12 UNITS UNDER THE SKIN ONCE DAILY active Not Available Not Available No t Available Jardiance 10 mg tablet TAKE 1 TABLET BY MOUTH EVERY MORNING active Not Available Not Available No t Available Ocrevus 30 mg/mL intravenous solution INFUSE 600 MG BY INTRAVENO US ROUTE EVERY 6 MONTHS 2023 active Not Available Not Available Not Avai lable Dexcom G7 Sensor device USE DIRECTED BEFORE A MEAL AND AT BEDTIME active Not Available Not Available No t Available Vitals None Recorded Social History Question Answer Notes LastModified by Organizat ion Details LastModified Time Do You Have An Advance Directive? No [email or web address] Information not available 05/02/2024 What Is Your Level Of Alcohol Consumption? None [email or web address] Information not available 05/02/2024 What Is Your Level Of Caffeine Consumption? Moderate [email or web address] Information not available 05/02/2024 Are You Currently Employed? No [email or web address] Information not available 05/02/2024 Which Illicit Or Recreational Drugs Have You Used? Marijuana [email or web address] Information not available 05/02/2024 What Is Your Occupation? Disabled [email or web address] Information not available 05/02/2024 How Many Times Per Week Do You Exercise? 1-2 Times Per Week [email or web address] Information not available 05/02/2024 E-cigarettes Or Vaporization Device? Uses Nicotine Containing Device [email or web address] Information not available 05/02/2024 When Did You Quit Smoking? 2020 [email or web address] Information not available 05/02/2024 Do You Have A Medical Power Of Hearing Consultant? No [email or web address] Information not available 05/02/2024 What Was The Date Of Your Most Recent Tobacco Screening? 05/08/2024 [email or web address] Information not available 05/02/2024 What Is Your Relationship Status? [email or web address] Information not available 05/02/2024 Do You Use Any Illicit Or Recreational Drugs? Yes [email or web address] Information not available 05/02/2024 Sex: Unknown Functional Status Question Answer Note LastModified by Organizat ion Details LastModified Time What is your exercise level? Occasional [email or web address] Information not available 05/02/2024 Mental Status None recorded. Family History Relationship Description Onset Age of this Age Resolved Age Notes LastModified by Organization Details LastModified Time Mother Diabetes mellitus [email or web address] Not available 2023 12:30:35 Mother Heart disease [email or web address] Not available 2023 12:30:35 Mother Hypertensive disorder [email or web address] Not available 2023 12:30:35 Mother Hypercholest erolemia [email or web address] Not available 2023 12:30:35 Father Diabetes mellitus [email or web address] Not available 2023 12:30:35 Father Heart disease [email or web address] Not available 2023 12:30:35 Father Hypertensive disorder [email or web address] Not available 2023 12:30:35 Father Hypercholest erolemia [email or web address] Not available 2023 12:30:35 Brother Diabetes mellitus [email or web address] Not available 2023 12:30:35 Maternal Grandmother Diabetes mellitus [email or web address] Not available 2023 12:30:35 Maternal Grandmother Heart disease [email or web address] Not available 2023 12:30:35 Notes:Unspecified Relation h as na Medical History Condition Response Diabetes Y Anxiety Disorder N Bleeding Disorder N Attention-deficit Hyperactivity Disorder N High Blood Pressure N Arthritis N Hyperlipidemia N Cancer N Stroke N Thyroid Problems Y Asthma N Depression Y COPD Y Anemia N Seizures N Heart Disease N Fibromyalgia Y Osteoporosis N Kidney Disease N Gynecological HistoryNo gynecological history recorded. Obstetrics History GPAL:G 0 P 0 0 0 0 Past Encounters Encounter ID Performer Location Encounter Start Date Encounter Closed Date Diagnosis/Indication Diagnosis SNOMED-CT Code Diagnosis ICD10 Code Diagnosis Note [id number] Rocky Acosta MD [address] [place] [address] [address] 05/08/2024 12:25:38 05/08/2024 17:49:41 Multiple sclerosis 51640925 G35 [id number] Rocky Acosta MD 800 [facility] [address] [place] [address] 05/08/2024 12:21:07 05/08/2024 16:52:36 Multiple sclerosis 93641571 G35 Taking hig h risk medication 6907647806 59129 Z91.89 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 Pain in limb 54887351 M7 9.609 [id number] Rocky Acosta MD [address] ([place]) [address] [place] [address] 10/16/2024 12:14:24 10/16/2024 17:39:22 Multiple sclerosis 59748247 G35 [id number] Rocky Acosta MD [address] [facility] ([place]) [address] [place] [address],[address] [place] [address] 10/16/2024 12:14:24 10/16/2024 17:39:22 Multiple sclerosis 10787112 G35 Taking hig h risk medication 6849290271 63591 Z79.899 Pain in bi lateral legs 6949064269 3582491 M79.604 M79.605 Health Concerns Section Related Observation LastModified by Organization Detai ls LastModified Time None Recorded Concern Status LastModified by Organization Details LastModified Time None Recorded Advance Directives Directive N: Payers Encounter Date Sequence Insurance Name Policy Number Policy Ledezma Covered Member ID Ledezma Member ID Guarantor Name 05/08/2024 1 [facility] (MEDICARE REPLACEMENT/AD VANTAGE - HMO) [id number] Maggie García [id number] Maggie García 05/08/2024 2 [place] WHEN MEDICARE OR MEDICARE REPLACEMENT PRIMARY) Maggie García [id number] Maggie García 05/08/2024 1 [facility] (MEDICARE REPLACEMENT/AD VANTAGE - HMO) [id number] Maggie García [id number] Maggie García 05/08/2024 2 [place]IC[place]PLACEMENT [place]) Magige García [id number] Maggie García 10/16/2024 1 [facility] (MEDICARE REPLACEMENT/AD VANTAGE - HMO) [id number] Maggie García [id number] Maggie García 10/16/2024 2 [place] OR MEDICARE REPLACEMENT PRIMARY) Maggie García [id number] Maggie García 10/16/2024 1 [facility] (MEDICARE REPLACEMENT/AD VANTAGE - HMO) [id number] Maggie García [id number] Maggie García 10/16/2024 2 [place] OR MEDICARE REPLACEMENT PRIMARY) Maggie García [id number] Maggie García Notes Date Note Type Note Provider Name and Address Organization Details Recorded Time 05/08/2024 text/html Patient was seen in the office for follow up of multiple sclerosis. Patient is on Ocrevus and due for her six month infusion today. As she gets close to her infusion, she notes an increase in fatigue and weakness. She is walking at home, generally holding onto furniture or grab bars. Outside of the home, she uses a cane or walker. She is independent in her cares. She has chronic urinary incontinence. She is on gabapentin for leg pains and takes 300 mg twice a day but the medicine wears off in the middle of the day and she would like to increase the dosage to three times a day. Rocky Acosta MD [facility] [place] [address], [phone], [facility] 05/12/2024 09:11:52 10/16/2024 text/html Patient was seen in the office for follow up of multiple sclerosis. Patient is on Ocrevus infusions and due for her infusion today. She has had no flareups of her disease and feels her course is stable. At home, she walks with a cane or walker. She can transfer herself and is independent in her cares but uses a shower chair. She is on pregabalin and topiramate for management of leg pains and those work well for her. She does not feel we need to make any changes today. Rocky Acosta MD [address] [place] [address], [phone], [facility] 10/17/2024 11:24:39 OBGyn Episode No OBEpisode recorded.
--- OUTSIDE RECORDS SUMMARY | 2025-02-12 10:50 | XMS_ITS | Encounter Summary ---
Author Organization [facility] Address [address] [place] [address] Care Team Providers Care Senior Technical Editor Name Role Phone Lachelle Ruelas Primary Care Provider [phone] Yoni Whitaker MD Unavailable [phone] None, Provider Primary Care Provider Un[facility] Wale Valdez DO Primary Care Provider [phone] Encounter Details Date Type Department Care Team (Late st Contact Info) Description 12/15/2018 Abstract [facility] [address] [place] [address] Lachelle Ruelas FNP [address] [place] [address] Social History Tobacco Use Types Packs/Day Years [...] on filedocumented in this encounter Care Teams Senior Technical Editor Relationship Specialty Start Date End Date Lachelle Ruelas FNP [address] [place] [address] PCP - General Nurse Practitioner Family 10/26/18 02/04/21 None, Provider, PCP - General UNKNOWN PHYSICIAN SPECIALTY 02/25/24 06/15/24 Wale Valdez DO [address] [place] [address] PCP - General FAMILY PRACTICE 06/16/24 Yoni Whitaker MD [facility] [address] [place] [address] [place] [employer] CARDIOVASCULAR DISEASE 01/26/19 documented as of this encounter
== END 2025-02-12 09:53 | disposition home or self-care (01) ==
LOC: CHSIMG 09:54
PROVIDERS: PCP Nurse Practitioner Family; Visit Provider Nurse Practitioner Family
DX: Z78.0 Asymptomatic menopausal state (principal); M85.88 Other specified disorders of bone density and structure, other site; M81.0 Age-related osteoporosis without current pathological fracture
CPT/HCPCS: 77080

== ENCOUNTER 2025-06-29 11:57 | Outpatient (CLI) | payer MEDICARE, MEDICAID, SELFPAY ==
--- NOTE | ~2025-06-29 | XR_ITS ---
EXAMINATION: XR chest 2V 06/29/2025 12:34 INDICATION: Shortness of breath and congestion PROCEDURE: 2 view chest COMPARISON: No prior studies for comparison. FINDINGS: The lungs are clear. The cardiomediastinal silhouette is within normal limits. There are no pleural effusions. There is no pneumothorax suspected. IMPRESSION: 1: NO ACUTE CARDIOPULMONARY DISEASE. Reviewed, dictated and finalized at location O.
--- NOTE | ~2025-06-29 | CT_ITS ---
EXAMINATION: CT lung screening DATE: 06/29/2025 12:35 INDICATION: Personal history of nicotine dependence. Pulmonary nodule follow-up TECHNIQUE: Computed tomography (CT) of the chest was performed without intravenous contrast. The dose-length product was 77.46 mGy-cm. COMPARISON: CT chest 06/20/2024 FINDINGS: Cervical hardware is noted. No enlarged mediastinal or hilar lymph nodes. There are a few nonenlarged, nonspecific mediastinal and hilar lymph nodes. There are a few calcified lymph nodes in the mediastinum and hilum. Visualized upper abdomen is grossly unchanged. Coronary artery calcifications. Thoracic aorta is not aneurysmal. Moderate atherosclerotic disease in the thoracic aorta. Tracheobronchial tree is patent. No pneumothorax. No pleural effusion. No pulmonary mass. Stable 6 mm noncalcified pulmonary nodule in the superior segment of the left lower lobe. Stable pulmonary nodules in the left lower lobe and left middle lobe. Stable scarring with mild bronchiectasis in the right upper lobe. Mild centrilobular emphysema in the upper lobes, unchanged. Multilevel degenerative changes visualized spine. No new pulmonary nodules. IMPRESSION: 1. Lung-RADS category 3: Probably benign. Further evaluation is recommended with noncontrast low-dose chest CT in 6 months. Reviewed, dictated and finalized at location Q. IMPRESSION: 1. Lung-RADS category 3: Probably benign. Further evaluation is recommended wit h noncontrast low-dose chest CT in 6 months.
--- OUTSIDE RECORDS SUMMARY | 2025-06-29 12:01 | XMS_ITS | Clinical Summary ---
Author Organization [facility] [facility] Address [address] [place] [address] Care Team Providers Care Saddle And Harness Maker Name Role Phone Alison Haastequila Peterson APRN-SACK SEWER Primary Care Provider Source Comments [facility],non-owned Affiliates and Associated Physician Practices is amultiple site organization consisting of ambulatory clinics and hospital sitesin [place], [place], [place] and [place]. This disclosure is being madepursuant to the Care Everywhere program and may not contain all information available regarding this patient. Last updated 18.[facility] Allergies Active Allergy Reactions Criticality Noted Date [...] 02/05/2016 Overview (05/14/2021): Note: Dr. Acosta in [place] Date Onset: 2011 Type 2 diabetes mellitus [...] on file Legal Sex Female 6:16 AM PRE PAROLE COUNSELING AIDE Gender Identity Not on file Sexual Orientation [...] 8:10 AM CDT Height 162.6 cm (5' 4) 02/04/2022 8:10 AM CDT Body Mass Index 23.52 02/04/2022 8:10 AM CDT Plan of Treatment Health Maintenance Due Date Last Done Comments COLON MONITORING 1965 COLONOSCOPY - COLON CA SCREENING 1963 CT COLONOGRAPHY - COLON CA SCREENING 1963 FIT - COLON CA SCREENING 1963 FLEX SIG - COLON CA SCREENING 1963 MAMMOGRAM 1963 HIV SCREENING 1978 HEPATITIS C SCREENING 03/01/1981 DTAP/TDAP/TD VACCINES (1 - Tdap) 1982 PAP SMEAR 1984 ZOSTER VACCINE (1 of 2) 2013 PNEUMOCOCCAL [...] MEDICARE AWV CALENDAR YEAR 2024 INFLUENZA VACCINE (#1) 2025 , 08/15/2020, 10/10/2019, Additional history exists HEPATITIS B [...] this topic Medical Devices Implanted Type Area Assistant Prosecuting Attorney Device Identifier Shelf Expiration Date Model / Serial / Lot Graft Bone Crstn Asr Abelino Engel dt 14 - [id number] Implanted:Qty: 1 on 02/04/2022 by Guadalupe Stiles MD at [facility] N/A: Spine Cervical Spinal [employer] 09/10/2024 [id number] / [id number] / [id number] Screw 3.5mm 15mm Jennifer Slf Drl Spne Crv Implanted:Qty: 3 on 02/04/2022 by Guadalupe Stiles MD at [facility] N/A: Spine Cervical Med[employer]onic [employer] [id number] / / Plate 1 Lvl Spne Crv Ant 21mm Zevo Ti Implanted:Qty: 1 on 02/04/2022 by Guadalupe Stiles MD at [facility] N/A: Spine Cervical Medtronic Sofamor Danek Spine [id number] / / Screw 3.5mm 13mm Va Slf Drl Spne Crv Ant Implanted:Qty: 1 on 02/04/2022 by Guadalupe Stiles MD at [facility] N/A: Spine Cervical Medtronic [employer] [id number] / / Procedures Procedure Name Priority Date/Time Associated Diagnosis Comments BASIC METABOLIC PANEL (CALCIUM TOTAL) Routine 02/02/2022 2:19 PM CDT Pre-op testing from Last 3 Months or Most Recently Relevant to Health Maintenance Results * (ABNORMAL) BASIC METABOLIC PANEL (CALCIUM TOTAL) (02/02/2022 2:19 PM CDT) BUN 16 7 - 26 mg/dL 02/02/2022 3:23 PM CDT [facility] Creatinine 0.99(H) 0.56 - 0.96 mg/dL 02/02/2022 3:23 PM CDT [facility] Sodium 145 136 - 145 mmol/L 02/02/2022 3:23 PM CDT [facility] Potassium 3.4(L) 3.5 - 4.5 mmol/L 02/02/2022 3:23 PM [facility] Chloride 105 98 - 107 mmol/L 02/02/2022 3:23 PM [facility] CO2 26 22 - 29 mmol/L 02/02/2022 3:23 PM [facility] Glucose 63(L) 70 - 115 mg/dL 02/02/2022 3:23 PM [facility] Calcium 8.9 8.4 - 10.2 mg/dL 02/02/2022 3:23 PM [facility] Anion Gap 17 8 - 18 02/02/2022 3:23 PM [facility] BUN/Creatinine Ratio 16 7 - 23 02/02/2022 3:23 PM [facility] Osmolality Calculated 299 270 - 300 mOsm/kg 02/02/2022 3:23 PM [facility] eGFR by CKD-EPI 66(L) >=90 mL/min/1.7 3 m2 02/02/2022 3:23 PM [facility] Blood BLOOD SPECIMEN / Unknown Lab Venipuncture / Unknown 02/02/2022 2:19 PM CDT 02/02/2022 2:57 PM CDT Guadalupe Stiles MD LAB - CHEMISTRY ORDERABLES Allegra wei Result [facility] [address] [place] [address], [facility] [phone] from Last 3 Months or Most Recently Relevant to Health Maintenance Insurance [facility] MANAGED MEDICARE ADV [facility] MANAGED MEDICARE ADV [place] [id number] Care Teams Saddle And Harness Maker Relationship Specialty Start Date End Date Martha Haas, JEFFREY-ANDRESSA [address] [place] [address] PCP - General 02/12/22
--- OUTSIDE RECORDS SUMMARY | 2025-06-29 12:01 | XMS_ITS | Clinical Summary ---
Author Organization [facility] Address [address] [place] [address] Care Team Providers Care Clark Driver Name Role Phone Lachelle Ruelas [facility] Primary Care Provider [phone] Allergies No known active allergies Medications insulin lispro protamine-lispr o (HumaLOG MIX 50-50) 100 unit/mL (50-50) pen syringe Inject 15-20 Units by subcutaneous injection 3 times daily with meals. Active insulin glargine (LANTUS) 100 unit/mL pen syringe Inject 25 Units by subcutaneous injection daily at bedtime. Active levothyroxine 50 mcg tablet Take 50 mcg by mouth daily carbon printer. Active metFORMIN (GLUCOPHAGE) 1,000 mg tablet Take [...] 2:11 PM CDT Height 163.8 cm (5' 4.5) 03/22/2018 2:11 PM CDT Body Mass Index 19.69 03/22/2018 2:11 PM CDT Plan of Treatment Health Maintenance Due Date Last Done Comments DTAP/TDAP/TD VACCINES (1 - Tdap) 1982 HPV/Cotest (21-29) 1984 CERVICAL CANCER SCREENING 1993 HPV/Cotest (30-65) 1993 PAP SMEAR 1993 COLORECTAL SCREENING 2008 Colorectal Cancer Screening 2008 FIT-DNA Q 3 years 2008 FIT/FOBT Q 1 year 2008 Flex Sig/CT Colonography Q 5 years 2008 ZOSTER VACCINE (1 of 2) 2013 BREAST CANCER SCREENING 03/16/2019 03/16/2018, 03/01 INFLUENZA VACCINE (#1) 2025 RSV VACCINE (60+ or ) (1 - 1-dose 75+ series) 2038 Procedures Procedure Name Priority Date/Time Associated Diagnosis Comments MAMMOGRAM REPORT Routine 03/16/2018 from Last 3 Months or Most Recently Relevant to Health Maintenance Results * MAMMOGRAM REPORT (03/16/2018) us Abstract Provider MAMMO ORDERABLES Final Result [facility] from Last 3 Months or Most Recently Relevant to Health Maintenance Care Teams Clark Driver Relationship Specialty Start Date End Date Lachelle Ruelas FNP [address] [place] [address] [place] [id number] PCP - General NURSE PRACTITIONER 03/09/18
[2025-06-29 12:20] LABS: Hematocrit 40.7 % (35.0-49.0); Hemoglobin 13.5 g/dL (12.0-15.0); Immature Granulocyte Percent A 0.3 % (0.0-0.0); Lymphocytes Absolute Auto 1.18 K/mm3 (1.10-4.50); Mean Corpuscular HGB Conc 33.2 g/dL (32-36); Mean Corpuscular Hemoglobin 29.5 pg (27.0-31.0); Mean Corpuscular Volume 89.1 fL (78.0-102.0); Nucleated Red Blood Cells Absolute Auto 0.00 K/mm3 (0.00-0.00); Nucleated Red Blood Cells Perc 0.0 % (0-0.0); Platelet Count Result 252 K/mm3 (150-420); Red Blood Count 4.57 M/mm3 (4.20-5.40); White Blood Count 9.5 K/mm3 (4.8-10.8)
[2025-06-29 12:33] LABS: MALB Creatinine Ratio 189.0 mg/g (0-30)
[2025-06-29 12:36] LABS: Hemoglobin A1C 9.1 % (<5.7)
[2025-06-29 12:53] LABS: Alanine Aminotransferase 25 U/L (6-35); Albumin Level 4.4 g/dL (3.5-5.1); Alkaline Phosphatase 95 U/L (38-126); Anion Gap 9 mmol/L (4-12); Aspartate Amino Transferase 34 U/L (14-36); Bilirubin,Total 0.8 mg/dL (0.2-1.3); Blood Urea Nitrogen 16 mg/dL (7-17); Calcium 8.8 mg/dL (8.4-10.2); Carbon Dioxide 27 mmol/L (22-30); Chloride 104 mmol/L (98-107); Cholesterol 219 mg/dL (0-200); Estimated Glomerular Filt Rate 58; Glucose 288 mg/dL (65-110); HDL Direct 47 mg/dL; Osmolality Calculated 302 mOsm/kg (285-295); Potassium 3.9 mmol/L (3.4-5.0); Sodium 140 mmol/L (137-145); Total Protein 7.3 g/dL (6.3-8.2); Triglycerides 225 mg/dL (<150)
[2025-06-29 13:24] LABS: Thyroid Stimulating Hormone Reflex 1.120 uIU/mL (0.465-4.68)
== END 2025-06-29 11:58 | disposition home or self-care (01) ==
PROVIDERS: PCP Nurse Practitioner Family; Visit Provider Nurse Practitioner Family
DX: R91.8 Other nonspecific abnormal finding of lung field (principal); R06.02 Shortness of breath; Z87.891 Personal history of nicotine dependence; E11.9 Type 2 diabetes mellitus without complications; E78.5 Hyperlipidemia, unspecified; Z79.4 Long term (current) use of insulin
CPT/HCPCS: 36415; 71046; 71271; 80053; 80061; 82043; 83036; 84443; 85025

== ENCOUNTER 2025-07-31 11:07 | Outpatient (NON) | payer MEDICARE, MEDICAID, SELFPAY ==
--- NOTE | 2025-07-31 | CY_PTH ---
PATIENT: Maggie García LOC: [facility] U#:[id number] AGE/SX: 60/F ROOM: RE07/31/[address]: Solange Wallace APRN : 1965 BED: DIS: 07/31/2025 SPEC #: [id number] RECD: 07/31/25 12:40 STATUS: JASMINA REHerberth #: [id number] DARIEL: 07/31/25 00:[address]: Solange Wallace DEPT: [facility] Cytology RECD BY: Alejandra Esposito MLT, (ASCP) Tissues: A - Pap Smear Procedures: Pap Smear
--- OUTSIDE RECORDS SUMMARY | 2025-07-31 11:42 | XMS_ITS | Clinical Summary ---
Author Organization [facility] Address [address] [place] [address] Care Team Providers Care German Teacher Name Role Phone Lachelle Ruelas [facility] Primary Care Provider [phone] Allergies No known active allergies Medications insulin lispro protamine-lispr o (HumaLOG MIX 50-50) 100 unit/mL (50-50) pen syringe Inject 15-20 Units by subcutaneous injection 3 times daily with meals. Active insulin glargine (LANTUS) 100 unit/mL pen syringe Inject 25 Units by subcutaneous injection daily at bedtime. Active levothyroxine 50 mcg tablet Take 50 mcg by mouth daily pulp grinder feeder. Active metFORMIN (GLUCOPHAGE) 1,000 mg tablet Take [...] Recently Relevant to Health Maintenance Care Teams German Teacher Relationship Specialty Start Date End Date Lachelle Ruelas FNP [address] [place] [address] [place] [phone] PCP - General NURSE PRACTITIONER 03/09/18
--- OUTSIDE RECORDS SUMMARY | 2025-07-31 11:42 | XMS_ITS | Encounter Summary ---
Author Organization [facility] Address [facility] [place] [address] Care Team Providers Care Automat Watcher Name Role Phone Lachelle Ruelas Primary Care Provider [phone] Yoni Whitaker MD Unavailable [phone] None, Provider Primary Care Provider Unavaila Wale Appiah DO Primary Care Provider [phone] Solange Wallace Unavailable [phone] Encounter Details Date Type Department Care Team (Late st Contact Info) Description 12/15/[address] [place] [id number] Lachelle Ruelas [address] [place] [address] Social History Tobacco Use Types Packs/Day Years Used Date Smoking Tobacco: Smoker, Current Status Unknown Comments Unknown Sex and Gender Information Value Date Recorded Sex Assigned at Male 06/27/2025 3:09 PM CDT Legal Sex Female 7:22 PM CDT Gender Identity Not on file Sexual Orientation Not on file documented as of this encounter Plan of Treatment Not on file documented as of this encounter Visit Diagnoses Not on filedocumented in this encounter Additional Health Concerns Infection Onset Date Last Indicated Resolved Time Respiratory Rule Out 06/27/2025 06/27/2025 025 3:41 PM CDT COVID-19 Rule Out 06/27/2025 06/27/2025 06/27/2025 3:56 PM CDT documented as of this encounter Care Teams Automat Watcher Relationship Specialty Start Date End Date Lachelle Ruelas FNP [address] [place] [address] [place] [address] PCP - General Nurse Practitioner Family 10/26/18 02/04/21 None, Provider, PCP - General UNKNOWN PHYSICIAN SPECIALTY 02/25/24 06/15/24 Wale Valdez DO [address] [place] [address] PCP - General FAMILY PRACTICE 06/16/24 Yoni Whitaker MD [facility] [address] [place] [address] [place] Torsion Spring Coiling Machine Setter CARDIOVASCULAR DISEASE 01/26/19 Solange Wallace FNP [address] [place] [phone] Nurse Practitioner Family 06/27/25 documented as of this encounter
--- OUTSIDE RECORDS SUMMARY | 2025-07-31 11:42 | XMS_ITS | Encounter Summary ---
Author Organization [facility] [place] [address] Care Team Providers Care Radon Inspector Name Role Phone Lachelle Ruelas Primary Care Provider [phone] Yoni Whitaker MD Unavailable [phone], Provider Primary Care Provider Unavaila Wale Appiah DO Primary Care Provider [phone] Solange Wallace Unavailable [phone] Encounter Details Date Type Department Care Team (Late st Contact Info) Description 07/18/2019 Abstract [facility] [address] [place], [place] [id number] Lachelle Ruelas [facility] [address] [place] [address] Social History Tobacco Use Types Packs/Day Years [...] documented as of this encounter Care Teams Radon Inspector Relationship Specialty Start Date End Date Lachelle Ruelas FNP [address] [place] [address] [place] [address] PCP - General Nurse Practitioner Family 10/26/18 02/04/21 None, Provider, PCP - General UNKNOWN PHYSICIAN SPECIALTY 02/25/24 06/15/24 Wale Valdez DO [address] [place] [address] PCP - General FAMILY PRACTICE 06/16/24 Yoni Whitaker MD [facility] [address] [place] [address] [place] Forensic Identification Specialist CARDIOVASCULAR DISEASE 01/26/19 Solange Wallace FNP [address] [place] [phone] Nurse Practitioner Family 06/27/25 documented as of this encounter
--- OUTSIDE RECORDS SUMMARY | 2025-07-31 11:42 | XMS_ITS | Encounter Summary ---
Author Organization [facility] Address [facility] [place] [address] Care Team Providers Care Salesperson Pets And Pet Supplies Name Role Phone Lachelle Ruelas Primary Care Provider [phone] Yoni Whitaker MD Unavailable [phone], Provider Primary Care Provider Unavaila Wale Appiah DO Primary Care Provider [phone] Solange Wallace Unavailable [phone] Encounter Details Date Type Department Care Team (Late st Contact Info) Description 01/15/2020 Abstract [facility] [address] [place], [place] [id number] Lachelle Ruelas [facility] [address] [place] [address] Social History Tobacco Use Types Packs/Day Years [...] documented as of this encounter Care Teams Salesperson Pets And Pet Supplies Relationship Specialty Start Date End Date Lachelle Ruelas FNP [address] [place] [address] [place] [address] PCP - General Nurse Practitioner Family 10/26/18 02/04/21 None, Provider, PCP - General UNKNOWN PHYSICIAN SPECIALTY 02/25/24 06/15/24 Wale Valdez DO [address] [place] [address] PCP - General FAMILY PRACTICE 06/16/24 Yoni Whitaker MD [facility] [address] [place] [address] [place] Wheat Washer CARDIOVASCULAR DISEASE 01/26/19 Solange Wallace FNP [address] [place] [phone] Nurse Practitioner Family 06/27/25 documented as of this encounter
--- OUTSIDE RECORDS SUMMARY | 2025-07-31 11:42 | XMS_ITS | Encounter Summary ---
Author Organization [facility] Address [facility] [place] [address] Care Team Providers Care Machine Sign Writer Name Role Phone Aad Estrada Primary Care Provider [phone] Lachelle Ruelas Primary Care Provider [phone] Yoni Whitaker MD Unavailable [phone], Provider Primary Care Provider Unavaila Wale Appiah DO Primary Care Provider [phone] Solange Wallace SENIOR COMMISSARY AGENT Unavailable [phone] Encounter Details Date Type Department Care Team (Late st Contact Info) Description 06/30/2003 Abstract [facility] Conversion Md, Generic Conversion, Social History Tobacco Use Types [...] documented as of this encounter Care Teams Machine Sign Writer Relationship Specialty Start Date End Date Ada Estrada FNP [address] [place] [address] PCP - General NURSE PRACTITIONER 09/19/18 10/25/18 Lachelle Ruelas FNP [address] [place] [address] PCP - General Nurse Practitioner Family 10/26/18 02/04/21 None, Provider, PCP - General UNKNOWN PHYSICIAN SPECIALTY 02/25/24 06/15/24 Wale Valdez DO [address] [place] [address] PCP - General FAMILY PRACTICE 06/16/24 Yoni Whitaker MD [facility] [address] [place] [address] [place] Circulation Analyst CARDIOVASCULAR DISEASE 01/26/19 Solange Wallace FNP [address] [place] [phone] Nurse Practitioner Family 06/27/25 documented as of this encounter
--- OUTSIDE RECORDS SUMMARY | 2025-07-31 11:42 | XMS_ITS | Clinical Summary ---
Author Organization [facility] Address [address] [place] [address] Care Team Providers Care Electronics Repair Technician Name Role Phone Yoni Whitaker MD Unavailable [phone] Wale Valdez DO Primary Care Provider [phone] Solange Wallace Unavailable [phone] Allergies Active Allergy Reactions Criticality Noted Date Comments Citalopram Other (see comment) 12/02/2017 Diclofenac Sodium GI Upset,Vomiting,Diarrhea Duloxetine Swelling 04/02/2018 Penicillins Other (see comment),Unknown 016 Seasonal Unknown 11/23/2017 Medications calcium carbonate-vitamin D (CALCIUM 600+D) 600-200 MG-UNIT Tab Take 1 tablet by mouth 2 (two) times daily. 12/21/19 18 Active Cholecalciferol (VITAMIN D3) 2000 units Cap Take 1 capsule by mouth daily. 12/21/19 18 Active amantadine 100 MG capsule TAKE ONE CAPSULE BY MOUTH IN THE MORNING AND 1 CAPSULE AT NOON 5 04/26/20 19 Active glatiramer 20 MG/ML injection 05/08/20 19 Active IPRATROPIUM-ALBUT JOSE 0.5-2.5 (3) MG/3ML SolutionIndicatio ns:COPD with acute exacerbation ([facility]) USE 1 VIAL BY NEBULIZATION EVERY 4 (FOUR) HOURS NEEDED. 360 mL 1 08/22/20 19 Active Blood Glucose Monitoring Suppl (BLOOD GLUCOSE MONITOR SYSTEM) w/Device KitIndications:Ty pe 2 diabetes mellitus with hyperglycemia, with long-term current use of insulin ([facility]) Test TID and as needed. (E11.40) 1 kit 09/19/20 19 Active ADMELOG 100 UNIT/ML injection (VIAL)Indications :Type 2 diabetes mellitus with other specified complication, unspecified whether prison insulin use ([facility]) INJECT 7-10 UNITS SUBCUTANEOUSLY AT MEALS 10 mL 06/10/20 20 Active EASY TOUCH INSULIN SYRINGE 31G X 5/16 0.3 ML MiscIndications:T ype 2 diabetes mellitus with hyperglycemia, with long-term current use of insulin ([facility]) USE 3 TIMES DAILY 100 each 3 06/10/20 20 Active ONETOUCH ULTRA test stripIndications: Type 2 diabetes mellitus with hyperglycemia, with long-term current use of insulin ([facility]) USE DAILY AND NEEDED TO CHECK BLOOD SUGARS. 100 strip 2 07/09/20 20 Active ONETOUCH DELICA LANCETS 33G MiscIndications:T ype 2 diabetes mellitus with hyperglycemia, with long-term current use of insulin ([facility]) TEST ONCE DAILY AND NEEDED. 100 each 2 07/09/20 20 Active solifenacin 5 MG tablet Take 5 mg by mouth daily. 07/01/20 20 Active lidocaine 4 % patchIndications: Polyneuropathy associated with underlying disease ([facility]),Chronic pain disorder Place 1 patch onto the skin daily. Remove & Discard patch within 12 hours or as directed by 30 patch 07/12/20 20 Active ALBUTEROL SULFATE HFA 108 (90 Base) MCG/ACT inhalerIndication s:COPD exacerbation ([facility]) INHALE 2 PUFFS EVERY 6 HOURS NEEDED FOR WHEEZING 8.5 Inhaler 1 08/14/20 20 Active pregabalin 200 MG capsuleIndication s:Type 2 diabetes mellitus with diabetic neuropathy, with long-term current use of insulin ([facility]) Take 1 capsule (200 mg total) by mouth 3 (three) times daily. 270 capsule 1 09/24/20 20 Active atorvastatin 40 MG tabletIndications :Uncontrolled diabetes mellitus due to underlying condition with diabetic neuropathic arthropathy, with long-term current use of insulin Take 1 tablet (40 mg total) by mouth nightly at bedtime. 30 tablet 2 10/18/20 20 Active insulin glargine 100 UNIT/ML injection (PEN)Indications: Type 2 diabetes mellitus with other specified complication, unspecified whether exterminator insulin use ([facility]) Inject 25 Units into the skin nightly at bedtime. 9 mL 1 10/18/20 20 Active nicotine polacrilex 2 MG lozengeIndication s:Tobacco dependence due to cigarettes Take 1 lozenge (2 mg total) by mouth as needed for Smoking cessation. 168 lozenge 11/05/19 21 Active B-D UF III MINI PEN NEEDLES 31G X 5 MM MiscIndications:T ype 2 diabetes mellitus with other specified complication, unspecified whether exterminator insulin use ([facility]) USE NIGHTLY WITH BASAGLAR PEN 100 Container 1 11/13/19 21 Active JARDIANCE 25 MG tabletIndications :Type 2 diabetes mellitus with other specified complication, unspecified whether exterminator insulin use ([facility]) TAKE 1 TABLET BY MOUTH EVERY DAY 30 tablet 01/10/20 21 Active GLIMEPIRIDE 1 MG tabletIndications :Uncontrolled diabetes mellitus due to underlying condition with diabetic neuropathic arthropathy, with long-term current use of insulin TAKE 1 TABLET BY MOUTH EVERY MORNING BEFORE BREAKFAST 30 tablet 01/14/20 21 Active HYDROXYZINE 50 MG tabletIndications :Anxiety TAKE 1 TABLET BY MOUTH NIGHTLY NEEDED (INSOMNIA). 30 tablet 01/14/20 21 Active LEVOTHYROXINE 50 MCG tabletIndications :Hypothyroidism (acquired) TAKE 1 TABLET BY MOUTH EVERY DAY 30 tablet 01/14/20 21 Active metFORMIN ER, OSM, (FORTAMET) 500 MG 24 hr tablet Take 1 tablet (500 mg total) by mouth daily with breakfast. Active topiramate (TOPAMAX) 100 MG tablet Take 1 tablet (100 mg total) by mouth 2 (two) times daily. Active dicyclomine (BENTYL) 20 MG tablet Take 1 tablet (20 mg total) by mouth every 6 (six) hours. 20 tablet 06/27/20 25 Active ondansetron (ZOFRAN-ODT) 4 MG disintegrating tabletIndications :Gastroenteritis Take 1 tablet (4 mg total) by mouth every 8 (eight) hours as needed for Nausea. 20 tablet 06/27/20 25 Active pantoprazole EC (PROTONIX) 40 MG tablet Take 1 tablet (40 mg total) by mouth daily. 30 tablet 06/27/20 25 Active Active Problems Problem Noted Date Diagnosed Date Retinopathy due to secondary diabetes mellitus, without macular edema, with mild nonproliferative retinopathy ([facility]) 01/31/2020 Controlled substance agreement signed 09/14/2019 Assessment & Plan (09/14/2019 11:55 AM C 40A [employer]): Agreement for gabapentin signed on 09/14/19. Left lower lobe pulmonary nodule 01/11/2019 Smoker 01/11/2019 Hyperlipidemia 08/04/2018 Overview (09/21/2018): Date Onset: 08/04/2018 Osteopenia determined by x-ray 12/21/2017 Overview (09/21/2018): Date Onset: 12/21/2017 COPD (chronic obstructive pu lmonary disease) ([facility]) 04/02/2017 Multiple sclerosis 02/05/2016 Overview (09/21/2018): Note: Dr. Acosta in [place] Date Onset: 2011 Type 2 diabetes mellitus ([facility]) 02/04 Overview (09/21/2018): Date Onset: 11/23/2017 Anxiety 02/04/2016 Arthritis, degenerative 02/04/2016 Depression 02/04/2016 Hypothyroidism (acquired) 02/04/2016 Overview (09/21/2018): Date Onset: 11/23/2017 Resolved Problems Problem Noted Date Diagnosed Date Resolved Date Mammographic microcalcification 03/09/2018 07/09/2020 Encounters Date Type Department Care Team Description 06/27/2025 2:46 PM CDT - 06/27/2025 5:20 PM CDT Emergency [facility] Emergency Room [address] [place] [address] Dianna Hensley MD Abdominal Pain; Vomiting; Diarrhea Discharge Disposition: Home or Self Care (Routine Discharge) 06/27/2025 Travel from Last 3 Months Immunizations Immunization Administration Dates Next Due Influenza [...] Sign Reading Time Taken Comments Blood Pressure 173/57 06/27/2025 4:30 PM CDT Pulse 55 06/27/2025 4:30 PM CDT Temperature 36.1 C (97 F) 06/27/2025 4:30 PM CDT Respiratory Rate 20 06/27/2025 4:30 PM CDT Oxygen Saturation 99% 06/27/2025 4:30 PM CDT Inhaled Oxygen Concentration - - Weight 63.5 kg (140 lb) 06/27/2025 2:52 PM CDT Height 162.6 cm (5' 4) 06/27/2025 2:52 PM CDT Body Mass Index 24.03 06/27/2025 2:52 PM CDT Plan of Treatment Health Maintenance Due Date Last Done Comments Colorectal Cancer Screening Colonoscopy (10 Years) 1963 Kidney Health Evaluation 1963 Annual Physical 1966 Hepatitis C 1981 DTaP, Tdap and Td Vaccines (1 - Tdap) 1982 Zoster Vaccines (1 of 2) 2013 Pneumococcal Vaccine: 50+ Years (2 of 2 - PCV) 10/21/2013 10/21/2012 Lipid Panel 01/15/2021 01/16/2020, 09/01, 05/10/2019, Additional history exists Hemoglobin A1C 04/16/2021 10/16/2020, 06/02, 01/16/2020, Additional history exists Diabetes: Retinopathy Eye Exam 01/09/2022 01/10/2020, 07/20/2019 RSV Immunization or 60+ Years (1 - Risk 60-74 years 1-dose series) 2023 PHQ-2 (Physician [place]) 11/01/2024 COVID-19 Vaccine ( season) 2025 09/30/2021, 02/17/2021, 01/20/2021 Colorectal Cancer Screening FIT-DNA (3 Years) Discontinued 06/24/2024, 01/20/2021, 01/20/2021 Meningococcal B Vaccine Aged Out No l onger eligible based on patient's age to complete this topic Meningococcal Vaccine Aged Out No bairon patel eligible based on patient's age to complete this topic RSV Immunizations Under 20 Months Aged Out No longer eligible based on patient's age to complete this topic Medical Devices Implanted Type Area Snuff Box Finisher Device Identifier Shelf Expiration Date Model / Serial / Lot Iol Tecnis Simplicity Dcb00 - [id number] Implanted:Qty: 1 on 03/01/2024 by Griselda Tran MD at [facility] [employer] 10/11/2025 DCB00 / / [id number] Iol [employer] Simplicity Dcb00 - [id number] Implanted:Qty: 1 on 04/05/2024 by Griselda Tran MD at [facility] [employer] Right: Eye [employer] DCB00 12/05/2026 DCB00 / / NONE Procedures Procedure Name Priority Date/Time Associated Diagnosis Comments POCT GLUCOSE - DOCKED DEVICE Routine 06/27/2025 5:12 PM CDT URINALYSIS, AUTO, COMPLETE STAT 06/27/2025 4:[address] ABD+PEL WO CON STAT 06/27/2025 3:2 6 PM CDT CORONAVIRUS (COVID 19) STAT 08/27/202 5 3:15 PM CDT INFLUENZA A & B STAT 06/27/2025 3:15 PM CDT LIPASE STAT 06/27/2025 3:05 PM CDT COMPREHENSIVE METABOLIC PANEL STAT 06/27/2025 3:05 PM CDT CBC W/DIFF AUTOMATED STAT 06/27/2025 3:05 PM CDT POCT GLUCOSE - DOCKED DEVICE Routine 06/27/2025 3:04 PM CDT COLOGUARD (SCAN ORDER) Routine 01/20/2021 HEMOGLOBIN, GLYCOSYLATED Routine 10/16/2020 7:45 AM C 40A [employer] Essential hypertension, malignant LIPID PANEL Routine 01/16/2020 10:22 AM CDT Diabetic neuropathy Encounter for long-term (current) use of insulin DILATED EYE EXAM (SCAN) Routine 01/10/2020 from Last 3 Months or Most Recently Relevant to Health Maintenance Results * (ABNORMAL) POCT glucose (06/27/2025 5:12 PM CDT) Only the most recent of2 resultswithin the time period is included. GLUCOSE POC 348(H) 70 - 110 mg/dL 06/27/2025 5:15 PM CDT [facility] 06/27/2025 5:12 PM CDT us Dianna Hensley MD POCT ORDERABLES - DEVICE Final Result [facility] [address] [place] [address], [place] [phone] * (ABNORMAL) URINALYSIS, AUTO, COMPLETE (06/27/2025 4:30 PM CDT) COLOR (U) YELLOW 06/27/2025 5:09 PM CDT [facility] TRANSPARENCY CLEAR 06/27/2025 5:09 PM T [facility] SPECIFIC GRAVITY (U) 1.010 1.000 - 1.030 06/27/2025 5:09 PM CDT [facility] U PH 6.0 5.0 - 9.0 06/27/2025 5:09 PM T [facility] LEUKOCYTES (U) NEGATIVE NEGATIVE 06/27/2025 5:09 PM CDT [facility] NITRITES NEGATIVE NEGATIVE 06/27/2025 5:09 PM T [facility] PROTEIN RANDOM (U) 2+(A) NEGATIVE 06/27/2025 5:09 PM T [facility] GLUCOSE (U) 3+(A) NEGATIVE 06/27/2025 5:09 PM T [facility] KETONES MG/DL (U) 2+(A) NEGATIVE 06/27/2025 5:09 PM T [facility] BILIRUBIN (U) NEGATIVE NEGATIVE 06/27/2025 5:09 PM T [facility] BLOOD (U) 2+(A) NEGATIVE 06/27/2025 5:09 PM T [facility] WBC/HPF 0-5 0 - 5 /HPF 06/27/2025 5:09 PM [facility] RBC/HPF NONE SEEN 0 - 5 /HPF 06/27/2025 5:09 PM CDT [facility] EPI/HPF RARE /HPF 06/27/2025 5:09 PM [facility] URINE SPECIMEN OBTAINED BY CLEAN CATCH PROCEDURE / Unknown 06/27/2025 4:30 PM CDT us Dianna Hensley MD URINE ORDERABLES Final Result [facility] [address] [place] [address], [place] [phone] * CT ABD+PEL WO CON (06/27/2025 3:26 PM CDT) Anatomical Region Laterality Modality Abdomen Computed Tomogra phy 06/27/2025 4:15 PM CDT Impressions 06/27/2025 4:21 PM CDT IMPRESSION: 1. No acute finding is seen in the abdomen or pelvis to account for the patient's mid abdominal pain, nausea, vomiting, and diarrhea. 2. Coronary artery calcifications. Referred By: Interpreted By: Ryley Sarabia DO, 06/27/2025 4:15 PM Narrative 06/27/2025 4:21 PM CDT [facility] [address] [place] [address] EXAMINATION: CT ABD+PEL WO CON EXAM DATE: 06/27/2025 3:10 PM CLINICAL HISTORY: Nausea, vomiting, and diarrhea. Mid abdominal pain. COMPARISON: None. TECHNIQUE: Axial CT of the abdomen and pelvis was performed without intravenous contrast. Coronal and sagittal reformatted images were obtained and reviewed. A radiation dose lowering technique was used for this procedure, which may include, but is not limited to, dose reduction technique, automated exposure control, the use of iterative reconstruction, ALARA (As Low As Reasonably Achievable) techniques, and Image Gently techniques. FINDINGS: VISUALIZED LOWER THORAX: The included lung bases are clear of active opacities. The incompletely visualized heart is not enlarged. There are coronary artery calcifications. HEPATOBILIARY: The liver is normal in size with normal anatomic variant Conor lobe. No gross contour abnormality is seen. The gallbladder is unremarkable. There is no biliary ductal dilatation. The pancreas is poorly evaluated without intravenous contrast; however no peripancreatic inflammation is seen SPLEEN: The spleen is normal in size. GENITOURINARY: There is no adrenal mass. There is no evidence to suggest obstructive urolithiasis, hydronephrosis, or perinephric abnormality. The urinary bladder is unremarkable. The uterus is appropriate in size. AORTA: There are atherosclerotic calcifications of the abdominal aorta without aneurysm formation. LYMPH NODES: There is no retroperitoneal, pelvic, or mesenteric adenopathy. GASTROINTESTINAL: There is no gastric or small bowel dilatation. The appendix is nondilated. No evidence is seen to suggest bowel obstruction. PERITONEUM: There is no free intraperitoneal fluid or air. MUSCULOSKELETAL: Facet hypertrophy affects the lower lumbar spine. There is grade 1 anterolisthesis of L4 on L5. Minimal osteoarthritis affects the hips. Minimal osteoarthritis affects the sacroiliac joints. A bone island is noted in the posterior right acetabulum. Procedure Note Ryley Sarabia, DO - 06/27/2025 [facility] [address] [place] [address] EXAMINATION: CT ABD+PEL WO CON EXAM DATE: 06/27/2025 3:10 PM CLINICAL HISTORY: Nausea, vomiting, and diarrhea. Mid abdominal pain. COMPARISON: None. TECHNIQUE: Axial CT of the abdomen and pelvis was performed without intravenouscontrast. Coronal and sagittal reformatted images were obtained andreviewed. A radiation dose lowering technique was used for this procedure,which may include, but is not limited to, dose reduction technique,automated exposure control, the use of iterative reconstruction, ALARA (AsLow As Reasonably Achievable) techniques, and Image Gently techniques. FINDINGS: VISUALIZED LOWER THORAX: The included lung bases are clear of active opacities. The incompletelyvisualized heart is not enlarged. There are coronary arterycalcifications. HEPATOBILIARY: The liver is normal in size with normal anatomic variant Conor lobe. Nogross contour abnormality is seen. The gallbladder is unremarkable. Thereis no biliary ductal dilatation. The pancreas is poorly evaluated withoutintravenous contrast; however no peripancreatic inflammation is seen SPLEEN: The spleen is normal in size. GENITOURINARY: There is no adrenal mass. There is no evidence to suggest obstructiveurolithiasis, hydronephrosis, or perinephric abnormality. The urinarybladder is unremarkable. The uterus is appropriate in size. AORTA: There are atherosclerotic calcifications of the abdominal aorta withoutaneurysm formation. LYMPH NODES: There is no retroperitoneal, pelvic, or mesenteric adenopathy. GASTROINTESTINAL: There is no gastric or small bowel dilatation. The appendix is nondilated.No evidence is seen to suggest bowel obstruction. PERITONEUM: There is no free intraperitoneal fluid or air. MUSCULOSKELETAL: Facet hypertrophy affects the lower lumbar spine. There is grade 1anterolisthesis of L4 on L5. Minimal osteoarthritis affects the hips.Minimal osteoarthritis affects the sacroiliac joints. A bone island isnoted in the posterior right acetabulum. IMPRESSION: 1. No acute finding is seen in the abdomen or pelvis to account for thepatient's mid abdominal pain, nausea, vomiting, and diarrhea. 2. Coronary artery calcifications. Referred By: Interpreted By: Ryley Sarabia DO, 06/27/2025 4:15 PM us Dianna Hensley MD CT Final Result * CORONAVIRUS (COVID-19) MOLECULAR (06/27/2025 3:15 PM CDT) CORONAVIRUS SARS COV 2 RNA NEGATIVE NEGATIVE 06/27/2025 3:55 PM CDT [facility] Comment: NEGATIVE RESULTS DO NOT RULE OUT COVID 19 AND SHOULD NOT BE USED THE SOLE BASIS FOR TREATMENT OR PATIENT MANAGEMENT DECISIONS, INCLUDING INFECTION CONTROL DECISIONS. NEGATIVE RESULTS SHOULD BE CONSIDERED IN THE CONTEXT OF A PATIENT'S RECENT EXPOSURES, HISTORY AND THE PRESENCE OF CLINICAL SIGNS AND SYMPTOMS CONSISTENT WITH COVID 19. THE ID NOW COVID-19 2.0 TEST HAS BEEN AUTHORIZED BY THE FDA UNDER EAU FOR USE BY AUTHORIZED LABORATORIES. PERFORMED BY NUCLEIC ACID AMPLIFICATION FOR MOLECULAR QUALITATIVE DETECTION OF SARS-COV-2. SPECIMEN TYPE NASAL 06/27/2025 3:16 PM CDT [facility] NASOPHARYNGEAL SWAB / Unknown 06/27/2025 3:15 PM CDT us Dianna Hensley MD MICROBIOLOGY - GENERAL ORDERABL ES Final Result [facility] [address] [place] [address], [place] [phone] * INFLUENZA A & B (06/27/2025 3:15 PM CDT) SPECIMEN TYPE NASOPHARYNGEAL SWAB 06/27/2025 3:21 PM CDT [facility] INFLUENZA A NEGATIVE NEGATIVE 06/27/2025 3:41 PM CDT [facility] INFLUENZA B NEGATIVE NEGATIVE 06/27/2025 3:41 PM CDT [facility] NASOPHARYNGEAL SWAB / Unknown 06/27/2025 3:15 PM CDT us Dianna Hensley MD MICROBIOLOGY - GENERAL ORDERABL ES Final Result [facility] [address] [place] [address], * (ABNORMAL) COMPREHENSIVE METABOLIC PANEL (06/27/2025 3:05 PM CDT) GLUCOSE 496(HH) 70 - 99 MG/DL 06/27/2025 3:30 PM CDT [facility] Comment: Critical Result(s) Called at: 15:29:27 on 06/27/2025 by: Tara Etienne to and read back by:JENNIFER DAVENPORT IN ER BUN 16 7 - 18 MG/DL 06/27/2025 3:30 PM CDT [facility] CREATININE S/P/B 1.44(H) 0.55 - 1.02 MG/DL 06/27/2025 3:30 PM CDT [facility] SODIUM S/P/B 137 136 - 145 MMOL/L 06/27/2025 3:30 PM CDT [facility] POTASSIUM S/P/B 3.7 3.5 - 5.1 MMOL/L 06/27/2025 3:30 PM CDT [facility] CHLORIDE S/P/B 96(L) 100 - 108 MMOL/L 06/27/2025 3:30 PM CDT [facility] CO2 20.4(L) 21 - 32 MMOL/L 06/27/2025 3:30 PM [facility] CALCIUM S/P/B 9.2 8.5 - 10.1 MG/DL 06/27/2025 3:30 PM [facility] BILIRUBIN TOTAL S/P/B 1.2 0.2 - 1.2 MG/DL 06/27/2025 3:30 PM [facility] TOTAL PROTEIN S/P/B 9.0(H) 6.4 - 8.2 G/DL 06/27/2025 3:30 PM [facility] ALBUMIN S/P/B 4.3 3.4 - 5.0 G/DL 06/27/2025 3:30 PM [facility] AST 20 15 - 37 U/L 06/27/2025 3:30 PM [facility] ALT 26 14 - 55 U/L 06/27/2025 3:30 PM [facility] ALKALINE PHOSPHATASE S/P/B 127 50 - 136 U/L 06/27/2025 3:30 PM [facility] ANION GAP 20.6(H) 5 - 15 MMOL/L 06/27/2025 3:30 PM [facility] BUN CREATININE RATIO 11.1 6 - 26 06/27/2025 3:30 PM [facility] A/G RATIO 0.9(L) 1.0 - 2.0 RATIO 06/27/2025 3:30 PM [facility] GFR ESTIMATE 41(L) >90 ML/MIN/1.7 3 M2 06/27/2025 3:30 PM [facility] Comment: NOTE: eGFR is not calculated for patients <18 years of age. This is an estimated GFR calculation using the new CKD EPI creatinine equation without race and so does not require a correction factor for race. This estimated GFR should not be used for calculating drug doses. 06/27/2025 3:05 PM CDT us Dianna Hensley MD LABORATORY Final Result [facility] [address] [place] [address], [place] [phone] * (ABNORMAL) CBC W/DIFF AUTOMATED (06/27/2025 3:05 PM CDT) WBC 19.46(H) 4.4 - 11.0 x10'3/uL 06/27/2025 3:16 PM CDT [facility] RBC 5.17(H) 4.50 - 5.10 x10'6/uL 06/27/2025 3:16 PM CDT [facility] HGB 15.7(H) 12.3 - 15.3 G/DL 06/27/2025 3:16 PM CDT [facility] HCT 45.3(H) 35.9 - 44.6 % 06/27/2025 3:16 PM CDT [facility] MCV 87.6 80.0 - 96.0 FL 06/27/2025 3:16 PM CDT [facility] MCH 30.4 25.3 - 30.9 PG 06/27/2025 3:16 PM CDT [facility] MCHC 34.7(H) 31.0 - 34.1 G/DL 06/27/2025 3:16 PM CDT [facility] RDW 13.1 12.4 - 15.1 % 06/27/2025 3:16 PM CDT [facility] PLT 310 151 - 353 x10'3/uL 06/27/2025 3:16 PM CDT [facility] MPV 9.7 9.6 - 12.0 FL 06/27/2025 3:16 PM CDT [facility] RBC MORPHOLOGY NORMAL 06/27/2025 3:16 PM CDT [facility] PLT MORPH. NORMAL 06/27/2025 3:16 PM CDT [facility] WBC MORPHOLOGY NORMAL 06/27/2025 3:16 PM CDT [facility] LYMPHOCYTES % 6.9(L) 15.8 - 45.0 % 06/27/2025 3:16 PM CDT [facility] NEUTROPHILS % 85.1(H) 42.1 - 71.9 % 06/27/2025 3:16 PM CDT [facility] MONOCYTES % 7.0 5.7 - 12.5 % 06/27/2025 3:16 PM CDT [facility] EOSINOPHILS 0.0 0.0 - 5.6 % 06/27/2025 3:16 PM CDT [facility] BASOPHILS 0.6 0.0 - 1.3 % 06/27/2025 3:16 PM CDT [facility] ABS. NEUTROPHILS 16.55(H) 1.40 - 6.00 x10'3/uL 06/27/2025 3:16 PM CDT [facility] IMMATURE GRANS % 0.4 0.0 - 0.5 % 06/27/2025 3:16 PM CDT [facility] ABS. LYMPHOCYTES 1.35 0.80 - 4.70 x10'3/uL 06/27/2025 3:16 PM CDT [facility] 06/27/2025 3:05 PM CDT us Dianna Hensley MD LABORATORY Final Result [facility] [address] [place] [address], [place] [phone] * LIPASE (06/27/2025 3:05 PM CDT) LIPASE 41 16 - 77 UNITS/L 06/27/2025 3:30 PM CDT [facility] 06/27/2025 3:05 PM CDT Dianna Hensley MD LABORATORY Final Result Performing Organization Address [facility] Co de Phone Number [facility] [address] [place] [address], [place] [phone] * COLOGUARD (SCAN) (01/20/2021) COLOGUARD NEGATIVE [facility] Stool specimen (specimen) 01/20/2021 Documents Scanned SCANNING Final Result Performing Organization Address [facility] de Phone Number [facility] * (ABNORMAL) HEMOGLOBIN, GLYCOSYLATED (10/16/2020 7:45 AM C 40A CREW CHIEF) HGB A1C 10.8(H) <5.7 % 10/16/2020 9:32 AM C 40A CREW CHIEF [facility] Comment: INCREASED RISK OF DIABETES <5.7% NON-DIABETES 5.7-6.4% INCREASED RISK FOR FUTURE DIABETES > OR = 6.5 CONSISTENT WITH DIABETES STANDARDS OF MEDICAL CARE IN DIABETES-2010 DIABETES CARE, 33(SUPP 1): S1-S61,2010 10/16/2020 7:45 AM C 40A CREW CHIEF [facility] Final Result Performing Organization Address [facility]/ZIP Co de Phone Number [facility] [address] [place] [address], [place] [phone] * (ABNORMAL) LIPID PANEL (01/16/2020 10:22 AM CDT) CHOLESTEROL 213(H) <200.0 MG/DL 01/16/2020 10:50 AM CDT [facility] TRIGLYCERIDES 91 <150 MG/DL 01/16/2020 10:50 AM CDT [facility] HDL 46 >40.0 MG/DL 01/16/2020 10:50 AM CDT [facility] LDL (CALCULATED) 149(H) <100 MG/DL 01/16/2020 10:50 AM CDT [facility] NON HDL CHOLESTEROL 167(H) <130 MG/DL 01/16/2020 10:50 AM CDT [facility] CHOL/HDL RATIO 4.6(H) 0.0 - 4.5 01/16/2020 10:50 AM T [facility] VLDL CALCULATION 18 5 - 55 MG/DL 01/16/2020 10:50 AM T [facility] LIPID INTERPRETATION 01/16/2020 10:50 AM T [facility] Comment: NIH CONCENSUS REPORT RECOMMENDATIONS: ADULT CHILD LOW RISK: CHOLESTEROL <200 <170 TRIGLYCERIDE <150 --- HDL >=60 --- LDL <100 <110 BORDERLINE: CHOLESTEROL 200-239 170-199 TRIGLYCERIDE 150-199 --- HDL 40-59 --- LDL 100-159 110-129 HIGH RISK: CHOLESTEROL >=240 >=200 TRIGLYCERIDE >=200 --- HDL <40 --- LDL >=160 >=130 01/16/2020 10:2 2 AM CDT Lachelle Ruelas TYPEWRITER OPERATOR AUTOMATIC LABORATORY Final Result [facility] [address] [place] [address], [place] [phone] * DIABETIC RETINOPATHY EXAM (01/10/2020) us Documents Scanned SCANNING Edited Result - Final [facility] ONBASE from Last 3 Months or Most Recently Relevant to Health Maintenance Insurance MEDICAID Member Subscriber Plan / Payer (Ef fective 2022-Present) Name:GarcíaMaggie Relation to Subscriber:Self Name:Aspen Garcíakiet [place] Payer ID:Not on file Group ID:Not on file Type:Not on file Address: [address] Care Teams Electronics Repair Technician Relationship Specialty Start Date End Date Wale Valdez DO [address] [place] [address] PCP - General FAMILY PRACTICE 06/16/24 Yoni Whitaker MD [facility] [address] [place] [address] Jorje Visual And Stock Associate CARDIOVASCULAR DISEASE 01/26/19 Solange Wallace FNP [address] [place] [phone] Nurse Practitioner Family 06/27/25
--- OUTSIDE RECORDS SUMMARY | 2025-07-31 11:42 | XMS_ITS | Encounter Summary ---
Author Organization [facility] Address [facility] [place] [address] Care Team Providers Care Salesperson Yard Goods Name Role Phone Lachelle Ruelas Primary Care Provider [phone] Yoni Whitaker MD Unavailable [phone] None, Provider Primary Care Provider Unavaila Wale Appiah DO Primary Care Provider [phone] Solange Wallace Unavailable [phone] Encounter Details Date Type Department Care Team (Late st Contact Info) Description 08/01/2019 Abstract [facility] [address] [place], [place] [id number] Lachelle Ruelas [facility] [address] [place] [address] Social History Tobacco Use Types Packs/Day Years [...] as of this encounter Care Teams Salesperson Yard Goods Relationship Specialty Start Date End Date Lachelle Ruelas FNP [address] [place] [address] [place] [address] PCP - General Nurse Practitioner Family 10/26/18 02/04/21 None, Provider, PCP - General UNKNOWN PHYSICIAN SPECIALTY 02/25/24 06/15/24 Wale Valdez DO [address] [place] [address] PCP - General FAMILY PRACTICE 06/16/24 Yoni Whitaker MD [facility] [address] [place] [address] Freight Firer CARDIOVASCULAR DISEASE 01/26/19 Solange Wallace FNP [address] [place] [phone] Nurse Practitioner Family 06/27/25 documented as of this encounter
--- OUTSIDE RECORDS SUMMARY | 2025-07-31 11:42 | XMS_ITS | Encounter Summary ---
Author Organization [facility] Address [address] [place] [address] Care Team Providers Care Medicaid Service Coordinator Name Role Phone Ada Estrada [facility] Primary Care Provider [phone] Lachelle Ruelas WAITSTAFF Primary Care Provider [phone] Yoni Whitaker MD Unavailable [phone] None, Provider Primary Care Provider Unavaila Wale Appiah DO Primary Care Provider [phone] Solange Wallace WAITSTAFF Unavailable [phone] Encounter Details Date Type Department Care Team (Late st Contact Info) Description 05/19/2017 Abstract [facility] CONVERSION [address] [place] [address] , Generic Conversion, Social History Tobacco Use [...] documented as of this encounter Care Teams Medicaid Service Coordinator Relationship Specialty Start Date End Date Ada Estrada FNP [address] [place] [address] PCP - General NURSE PRACTITIONER 09/19/18 10/25/18 Lachelle Ruelas FNP [address] [place] [address] PCP - General Nurse Practitioner Family 10/26/18 02/04/21 None, MD Naima PCP - General UNKNOWN PHYSICIAN SPECIALTY 02/25/24 06/15/24 Wale Valdez DO [address] [place] [address] PCP - General FAMILY PRACTICE 06/16/24 Yoni Whitaker MD [facility] [address] [place] [address] [place] Heating And Refrigeration Inspector CARDIOVASCULAR DISEASE 01/26/19 Solange Wallace FNP [address] [place] [phone] Nurse Practitioner Family 06/27/25 documented as of this encounter
--- OUTSIDE RECORDS SUMMARY | 2025-07-31 11:42 | XMS_ITS | Clinical Summary ---
Author Organization [facility] [employer] Address [address] [place] [address] Care Team Providers Care Commercial Collector Name Role Phone Alison Haastequila Peterson APRN-ICU CLERK Primary Care Provider Source Comments [facility] [employer] [employer],non-owned Affiliates and Associated Physician Practices is amultiple site organization consisting of ambulatory clinics and hospital sitesin [place], [place], [place] and [place]. This disclosure is being madepursuant to the Care Everywhere program and may not contain all information available regarding this patient. Last updated 18.[facility] Allergies Active Allergy Reactions Criticality Noted Date [...] 02/05/2016 Overview (05/14/2021): Note: Dr. 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 EXAMINER Gender Identity Not on file Sexual Orientation [...] SCREENING 01/21/2024 01/20/2021 Colorectal Cancer Screening 01/21/2024 DEPRESSION SCREENING 11/01/2024 DIABETES - URINE PROTEIN SCREENING 11/01/2024 MEDICARE AWV CALENDAR YEAR 2024 COVID-19 VACCINE ( season) 2025 09/30/2021, 02/17/2021, 01/20/2021 INFLUENZA VACCINE (#1) 2025 , 08/15/2020, 10/10/2019, [...] this topic Medical Devices Implanted Type Area Credit Front Office Developer Device Identifier Shelf Expiration Date Model / Serial / Lot Graft Bone Crstn Asr Abelino Engel dt 14 - [id number] Implanted:Qty: 1 on 02/04/2022 by Guadalupe Stiles MD at [facility] N/A: Spine Cervical Spinal [employer] 09/10/2024 [id number] / [id number] / [id number] Screw 3.5mm 15mm Jennifer Slf Drl Spne Crv Implanted:Qty: 3 on 02/04/2022 by Guadalupe Stiles MD at [facility] N/A: Spine Cervical Medtronic Sofamor [employer] [id number] / / Plate 1 Lvl Spne Crv Ant 21mm Zevo Ti Implanted:Qty: 1 on 02/04/2022 by Guadalupe Stiles MD at [facility] N/A: Spine Cervical Medtronic Sofamor Danek Spine [id number] / / Screw 3.5mm 13mm Va Slf Drl Spne Crv Ant Implanted:Qty: 1 on 02/04/2022 by Guadalupe Stiles MD at [facility] N/A: Spine Cervical Medtronic Sofamor [employer] [id number] / / Procedures Procedure Name Priority Date/Time Associated Diagnosis Comments BASIC METABOLIC PANEL (CALCIUM TOTAL) Routine 02/02/2022 2:19 PM CDT Pre-op testing from Last 3 Months or Most Recently Relevant to Health Maintenance Results * (ABNORMAL) BASIC METABOLIC PANEL (CALCIUM TOTAL) (02/02/2022 2:19 PM CDT) BUN 16 7 - 26 mg/dL 02/02/2022 3:23 PM CDT [facility] Creatinine 0.99(H) 0.56 - 0.96 mg/dL 02/02/2022 3:23 PM CDT [facility] Sodium 145 136 - 145 mmol/L 02/02/2022 3:23 PM CDT [facility] Potassium 3.4(L) 3.5 - 4.5 [...] LAB - CHEMISTRY ORDERABLES Allegra wei Result [facility] [address] [place] [address], [facility] [phone] from Last 3 Months or Most Recently Relevant to Health Maintenance Insurance [facility] MANAGED MEDICARE ADV [facility] MANAGED MEDICARE ADV [place] [id number] Care Teams Commercial Collector Relationship Specialty Start Date End Date Martha Haas, JEFFREY-ANDRESSA [address] [place] [address] PCP - General 02/12/22
== END 2025-07-31 11:08 | disposition home or self-care (01) ==
LOC: CHSLAB 11:08
PROVIDERS: PCP Nurse Practitioner Family; Visit Provider Nurse Practitioner Family
DX: N89.8 Other specified noninflammatory disorders of vagina (principal)
CPT/HCPCS: 87491; 87591; 87624; 87798; 88175; G0145

== ENCOUNTER 2025-08-03 13:03 | Outpatient (CLI) | payer MEDICARE, MEDICAID, SELFPAY ==
--- NOTE | ~2025-08-03 | MM_ITS ---
EXAMINATION: MM screening massimo BI w dick HISTORY: Screening TECHNIQUE: Craniocaudal and mediolateral oblique 3-D tomosynthesis images were obtained and synthetic 2-D images were generated. CAD analysis was submitted and interpreted. COMPARISON: Comparison to multiple prior studies sequentially, with oldest reviewed study dated 01/22/2012. BREAST PARENCHYMAL COMPOSITION: Dense: The breasts are heterogeneously dense, which may obscure small masses FINDINGS: There is a developing asymmetry in the upper outer quadrant of the right breast, posterior third. There are adjacent indeterminate calcifications. The left breast is stable without evidence for malignancy. IMPRESSION: 1. Developing focal right breast asymmetry, upper outer quadrant with adjacent indeterminate calcifications. 2. Additional spot compression and mediolateral views with possible follow-up breast ultrasound recommended. BI-RADS Category 0: Incomplete: Needs additional imaging evaluation. Reviewed, dictated and finalized at location B. IMPRESSION: 1. Developing focal right breast asymmetry, upper outer quadrant with adjacent indeterminate calcifications. 2. Additional spot compression and mediolateral views with possible follow-up b reast ultrasound recommended. BI-RADS Category 0: Incomplete: Needs additional imaging evaluation.
--- OUTSIDE RECORDS SUMMARY | 2025-08-03 13:06 | XMS_ITS | Clinical Summary ---
Author Organization [facility] Address [address] [place] [address] Care Team Providers Care Engineering Test Mechanic Name Role Phone Lachelle Ruelas [facility] Primary Care Provider [phone] Allergies No known active allergies Medications insulin lispro protamine-lispr o (HumaLOG MIX 50-50) 100 unit/mL (50-50) pen syringe Inject 15-20 Units by subcutaneous injection 3 times daily with meals. Active insulin glargine (LANTUS) 100 unit/mL pen syringe Inject 25 Units by subcutaneous injection daily at bedtime. Active levothyroxine 50 mcg tablet Take 50 mcg by mouth daily estimating manager. Active metFORMIN (GLUCOPHAGE) 1,000 mg tablet Take [...] Recently Relevant to Health Maintenance Care Teams Engineering Test Mechanic Relationship Specialty Start Date End Date Lachelle Ruelas FNP [address] [place] [address] [place] [address] PCP - General NURSE PRACTITIONER 03/09/18
--- OUTSIDE RECORDS SUMMARY | 2025-08-03 13:06 | XMS_ITS | Clinical Summary ---
Author Organization [facility] [employer] Address [address] [place] [address] Care Team Providers Care Interactive Media Project Manager Name Role Phone Alison Haastequila Peterson APRN-ISOTOPE HYDROLOGIST Primary Care Provider Source Comments [facility],non-owned Affiliates and Associated Physician Practices is amultiple site organization consisting of ambulatory clinics and hospital sitesin [place], [place], [place] and [place]. This disclosure is being madepursuant to the Care Everywhere program and may not contain all information available regarding this patient. Last updated 18.[facility] Allergies Active Allergy Reactions Criticality Noted Date [...] 02/05/2016 Overview (05/14/2021): Note: Dr. 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 Gender Identity Not on file Sexual Orientation [...] this topic Medical Devices Implanted Type Area Seasonal Recruiter Device Identifier Shelf Expiration Date Model / Serial / Lot Graft Bone Crstn Asr Abelino Engel dt 14 - [id number] Implanted:Qty: 1 on 02/04/2022 by Guadalupe Stiles MD at [facility] N/A: Spine Cervical Spinal [employer] 09/10/2024 [id number] / [id number] / [id number] Screw 3.5mm 15mm Jennifer Slf Drl Spne Crv Implanted:Qty: 3 on 02/04/2022 by Guadalupe Stiles MD at [facility] N/A: Spine Cervical Medtronic Sofamor [employer] [id number] / / Plate 1 Lvl Spne Crv Ant 21mm Zevo Ti Implanted:Qty: 1 on 02/04/2022 by Guadalupe Stiles MD at [facility] N/A: Spine Cervical Medtronic Sofamor Dane[employer] Spine [id number] / / Screw 3.5mm 13mm Va Slf Drl Spne Crv Ant Implanted:Qty: 1 on 02/04/2022 by Guadalupe Stiles MD at [facility] N/A: Spine Cervical Medtronic Sofamor [employer] [id number] / / Procedures Procedure Name Priority Date/Time Associated Diagnosis Comments BASIC METABOLIC PANEL (CALCIUM TOTAL) Routine 02/02/2022 2:19 PM CDT Pre-op testing from Last 3 Months or Most Recently Relevant to Health Maintenance Results * (ABNORMAL) BASIC METABOLIC PANEL (CALCIUM TOTAL) (02/02/2022 2:19 PM CDT) BUN 16 7 - 26 mg/dL 02/02/2022 3:23 PM CDT [facility] Creatinine 0.99(H) 0.56 - 0.96 mg/dL 02/02/2022 3:23 PM CDT [facility] Sodium 145 136 - 145 mmol/L 02/02/2022 3:23 PM CDT [facility] Potassium 3.4(L) 3.5 - 4.5 mmol/L 02/02/2022 3:23 PM [facility] Chloride 105 98 - 107 mmol/L 02/02/2022 3:23 PM [facility] CO2 26 22 - 29 mmol/L 02/02/2022 3:23 PM [facility] Glucose 63(L) 70 - 115 mg/dL 02/02/2022 3:23 PM [facility] Calcium 8.9 8.4 - 10.2 mg/dL 02/02/2022 3:23 PM [facility] Anion Gap 17 8 - 18 02/02/2022 3:23 PM [facility] BUN/Creatinine Ratio 16 7 - 23 02/02/2022 3:23 PM [facility] Osmolality Calculated 299 270 - 300 mOsm/kg 02/02/2022 3:23 PM [facility] eGFR by CKD-EPI 66(L) >=90 mL/min/1.7 3 m2 02/02/2022 3:23 PM [facility] Blood BLOOD SPECIMEN / Unknown Lab Venipuncture / Unknown 02/02/2022 2:19 PM CDT 02/02/2022 2:57 PM CDT Guadalupe Stiles MD LAB - CHEMISTRY ORDERABLES Allegra wei Result [facility] [address] [place] [address], [facility] [phone] from Last 3 Months or Most Recently Relevant to Health Maintenance Insurance [facility] MANAGED MEDICARE ADV [facility] MANAGED MEDICARE ADV [place] [id number] Care Teams Interactive Media Project Manager Relationship Specialty Start Date End Date Martha Haas, JEFFREY-ANDRESSA [address] [place] [address] PCP - General 02/12/22
== END 2025-08-03 13:04 | disposition home or self-care (01) ==
PROVIDERS: PCP Nurse Practitioner Family; Visit Provider Nurse Practitioner Family
DX: Z12.31 Encounter for screening mammogram for malignant neoplasm of breast (principal); R92.8 Other abnormal and inconclusive findings on diagnostic imaging of breast
CPT/HCPCS: 77063; 77067

== ENCOUNTER 2025-08-30 08:55 | Outpatient (CLI) | payer MEDICARE, MEDICAID, SELFPAY ==
--- NOTE | ~2025-08-30 | MMUS_ITS ---
EXAMINATION: US breast RT limited, MM diagnostic massimo RT w dick HISTORY: Follow-up right breast asymmetry. TECHNIQUE: Additional 3-D tomosynthesis images of the right breast were performed and synthetic 2-D images were generated. CAD analysis was submitted and interpreted. High resolution Limited right breast ultrasound was performed. COMPARISON: Comparison to multiple prior studies sequentially, with oldest reviewed study dated 06/20/2024. BREAST PARENCHYMAL COMPOSITION: Dense: The breasts are heterogeneously dense, which may obscure small masses FINDINGS: MAMMOGRAPHIC FINDINGS: There is an indistinct mass in the upper outer quadrant of the right breast, posterior third. There are adjacent punctate calcifications which are nonspecific. There is no skin thickening. ULTRASOUND: Limited right breast ultrasound: At 10:00, 8 cm from the nipple there is an irregular shaped hypoechoic mass measuring 8 x 7 x 4 mm without posterior features or internal vascularity. There are angular margins. IMPRESSION: 1. Suspicious right breast mass at 10:00, 8 cm from the nipple measuring 8 mm. 2. Ultrasound-guided right breast biopsy recommended. BI-RADS category 4, suspicious findings. Reviewed, dictated and finalized at location B. IMPRESSION: 1. Suspicious right breast mass at 10:00, 8 cm from the nipple measuring 8 mm. 2. Ultrasound-guided right breast biopsy recommended. BI-RADS category 4, suspicious findings.
--- NOTE | ~2025-08-30 | US_ITS ---
EXAMINATION: US renal BI, 08/30/2025 10:10 CDT HISTORY: E11.29 - Type 2 diabetes mellitus with other diabetic kid... Comparison: None Technique: Rodriguez-scale and color Doppler images were obtained. Findings: KIDNEYS: The renal cortices are intact, there are no solid masses or calculi, no hydronephrosis Right Kidney: Right kidney 10.3 x 5 x 5.3 cm, subcentimeter superior pole simple cyst 4 x 4 x 5 mm. Left Kidney: Left kidney 8.5 x 4.8 x 5.3 cm. Bladder: The bladder is unremarkable. . Impression: No acute abnormality. Reviewed, dictated and finalized at location P. Impression: No acute abnormality.
--- OUTSIDE RECORDS SUMMARY | 2025-08-30 09:20 | XMS_ITS | Clinical Summary ---
Author Organization [facility] Address [address] [place] [address] Care Team Providers Care Tube Making Machine Operator Name Role Phone Alison Haastequila Peterson APRN-ADMINISTRATIVE SUPPORT SPECIALIST Primary Care Provider Source Comments [facility],non-owned Affiliates and Associated Physician Practices is amultiple site organization consisting of ambulatory clinics and hospital sitesin [place], [place], [place] and [place]. This disclosure is being madepursuant to the Care Everywhere program and may not contain all information available regarding this patient. Last updated 18.[facility] Allergies Active Allergy Reactions Criticality Noted Date [...] 02/05/2016 Overview (05/14/2021): Note: Dr. 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 N/A: Spine Cervical Spinal [employer] 09/10/2024 [id number] / [id number] / [id number] Screw 3.5mm 15mm Jennifer Slf Drl Spne Crv Implanted:Qty: 3 on 02/04/2022 by Guadalupe Stiles MD at [facility] N/A: Spine Cervical Medtronic Sofamor [employer] [id number] / / Plate 1 Lvl Spne Crv Ant 21mm Zevo Ti Implanted:Qty: 1 on 02/04/2022 by Guadalupe Stiles MD at [facility] N/A: Spine Cervical Medtronic Sofamor Dane[employer] Spine [id number] / / Screw 3.5mm 13mm Va Slf Drl Spne Crv Ant Implanted:Qty: 1 on 02/04/2022 by Guadalupe Stiles MD at [facility] N/A: Spine Cervical Medtronic Sofamor [employer] [id number] / / Procedures Procedure Name Priority Date/Time Associated Diagnosis Comments BASIC METABOLIC PANEL (CALCIUM TOTAL) Routine 02/02/2022 2:19 PM CDT Pre-op testing from Last 3 Months or Most Recently Relevant to Health Maintenance Results * (ABNORMAL) BASIC METABOLIC PANEL (CALCIUM TOTAL) (02/02/2022 2:19 PM CDT) BUN 16 7 - 26 mg/dL 02/02/2022 3:23 PM CDT [facility] Creatinine 0.99(H) 0.56 - 0.96 mg/dL 02/02/2022 3:23 PM CDT [facility] Sodium 145 136 - 145 mmol/L 02/02/2022 3:23 PM CDT [facility] Potassium 3.4(L) 3.5 - 4.5 mmol/L 02/02/2022 3:23 PM [facility] Chloride 105 98 - 107 mmol/L 02/02/2022 3:23 PM [facility] CO2 26 22 - 29 mmol/L 02/02/2022 3:23 PM [facility] Glucose 63(L) 70 - 115 mg/dL 02/02/2022 3:23 PM [facility] Calcium 8.9 8.4 - 10.2 mg/dL 02/02/2022 3:23 PM [facility] Anion Gap 17 8 - 18 02/02/2022 3:23 PM [facility] BUN/Creatinine Ratio 16 7 - 23 02/02/2022 3:23 PM [facility] Osmolality Calculated 299 270 - 300 mOsm/kg 02/02/2022 3:23 PM [facility] eGFR by CKD-EPI 66(L) >=90 mL/min/1.7 3 m2 02/02/2022 3:23 PM [facility] Blood BLOOD SPECIMEN / Unknown Lab Venipuncture / Unknown 02/02/2022 2:19 PM CDT 02/02/2022 2:57 PM CDT Guadalupe Stiles MD LAB - CHEMISTRY ORDERABLES Allegra wei Result [facility] [address] [place] [address], [facility] [phone] from Last 3 Months or Most Recently Relevant to Health Maintenance Insurance [facility] MANAGED MEDICARE ADV [facility] MANAGED MEDICARE ADV Care Teams Tube Making Machine Operator Relationship Specialty Start Date End Date Martha Haas, FERRYBOAT OPERATOR HELPER-ADMINISTRATIVE SUPPORT SPECIALIST [address] [place] [address] PCP - General 02/12/22
--- OUTSIDE RECORDS SUMMARY | 2025-08-30 09:20 | XMS_ITS | Clinical Summary ---
Author Organization [facility] Address [address] [place] [address] Care Team Providers Care E Tailer Name Role Phone Lachelle Ruelas [facility] Primary Care Provider [phone] Allergies No known active allergies Medications insulin lispro protamine-lispr o (HumaLOG MIX 50-50) 100 unit/mL (50-50) pen syringe Inject 15-20 Units by subcutaneous injection 3 times daily with meals. Active insulin glargine (LANTUS) 100 unit/mL pen syringe Inject 25 Units by subcutaneous injection daily at bedtime. Active levothyroxine 50 mcg tablet Take 50 mcg by mouth daily dairy feed sales consultant. Active metFORMIN (GLUCOPHAGE) 1,000 mg tablet Take [...] Recently Relevant to Health Maintenance Care Teams E Tailer Relationship Specialty Start Date End Date Lachelle Ruelas FNP [address] [place] [address] [place] [address] PCP - General NURSE PRACTITIONER 03/09/18
[2025-08-30 11:19] LABS: Cholesterol 181 mg/dL (0-200); HDL Direct 48 mg/dL; Triglycerides 348 mg/dL (<150)
[2025-08-30 11:20] LABS: Albumin Level 4.5 g/dL (3.5-5.1); Anion Gap 9 mmol/L (4-12); Blood Urea Nitrogen 17 mg/dL (7-17); Calcium 8.5 mg/dL (8.4-10.2); Carbon Dioxide 27 mmol/L (22-30); Chloride 105 mmol/L (98-107); Estimated Glomerular Filt Rate 54; Glucose 291 mg/dL (65-110); Osmolality Calculated 304 mOsm/kg (285-295); Potassium 5.2 mmol/L (3.4-5.0); Sodium 141 mmol/L (137-145)
[2025-08-30 11:26] LABS: MALB Creatinine Ratio 8.8 mg/g (0-30)
[2025-08-30 11:27] LABS: Total Protein Urine Random < 5 mg/dL; Ur Ttl Prot Creatinine Ratio 0.05 mg/mg (0-0.20)
[2025-08-31 15:09] LABS: Albumin 3.6 g/dL (2.9-4.4); Alpha-1-Globulin 0.2 g/dL (0.0-0.4); Alpha-2-Globulin 1.1 g/dL (0.4-1.0); Gamma Globulin 1.3 g/dL (0.4-1.8)
[2025-09-03 11:08] LABS: ANA by IFA Rfx Titer/Pattern Negative (.); Albumin, U 44.8 % (.); Alpha-1-Globulin, U 3.0 % (.); Alpha-2-Globulin, U 10.9 % (.); Beta Globulin, U 23.9 % (.); Gamma Globulin, U 17.3 % (.)
[2025-09-03 21:07] LABS: Anti-GBM Antibodies <0.2 units (0.0-0.9)
== END 2025-08-30 08:56 | disposition home or self-care (01) ==
PROVIDERS: Internal Medicine Nephrology; PCP Nurse Practitioner Family; Visit Provider Nurse Practitioner Family
DX: E11.29 Type 2 diabetes mellitus with other diabetic kidney complication (principal); R80.9 Proteinuria, unspecified; E55.9 Vitamin D deficiency, unspecified; E78.5 Hyperlipidemia, unspecified; R92.8 Other abnormal and inconclusive findings on diagnostic imaging of breast; N63.12 Unspecified lump in the right breast, upper inner quadrant
CPT/HCPCS: 36415; 76642; 76770; 77061; 77065; 80061; 80069; 82043; 82306; 82570; 84155; 84156; 84165; 84166; 86037; 86038; 86160; 86225; 86364; G0279

== ENCOUNTER 2025-10-04 08:21 | Outpatient (CLI) | payer MEDICARE, MEDICAID, SELFPAY ==
--- NOTE | ~2025-10-04 | MM_ITS ---
PROCEDURE(S): US breast biopsy RT w image INDICATION(S): R92.8 - Other abnormal and inconclusive findings on diagnostic COMPARISON(S): August 30 and August 03 TECHNIQUE/FINDINGS: Informed consent was obtained. Under sterile conditions, 1% lidocaine was injected as local anesthetic. Lidocaine with epinephrine was utilized for more deep anesthesia. A skin charley was made with a scalpel, and a coaxial was placed with ultrasound guidance. Following that, multiple samples were obtained with a 14-gauge spring- loaded biopsy needle and sonographic guidance. No complications occurred. The patient tolerated the procedure well. A biopsy marker was placed in the biopsy bed at the end of the procedure. Post procedural sonographic imaging demonstrates the echogenic biopsy marker in the biopsy bed. The biopsy marker is also seen in the expected location on mammography. IMPRESSION: Status post ultrasound-guided core biopsy. Pathology is pending. Reviewed, dictated and finalized at location C. L MILLING MACHINE OPERATOR
--- OUTSIDE RECORDS SUMMARY | 2025-10-04 08:36 | XMS_ITS | Clinical Summary ---
Author Organization [facility] Address [address] [place] [address] Care Team Providers Care Hook Puller Name Role Phone Lachelle Ruelas [facility] Primary Care Provider [phone] Allergies No known active allergies Medications insulin lispro protamine-lispr o (HumaLOG MIX 50-50) 100 unit/mL (50-50) pen syringe Inject 15-20 Units by subcutaneous injection 3 times daily with meals. Active insulin glargine (LANTUS) 100 unit/mL pen syringe Inject 25 Units by subcutaneous injection daily at bedtime. Active levothyroxine 50 mcg tablet Take 50 mcg by mouth daily press bucker. Active metFORMIN (GLUCOPHAGE) 1,000 mg tablet Take [...] Recently Relevant to Health Maintenance Care Teams Hook Puller Relationship Specialty Start Date End Date Lachelle Ruelas FNP [address] [place] [address] [place] [address] PCP - General NURSE PRACTITIONER 03/09/18
--- OUTSIDE RECORDS SUMMARY | 2025-10-04 08:36 | XMS_ITS | Clinical Summary ---
Author Organization [facility] Address [address] [place] [address] Care Team Providers Care Tower Crane Operator Name Role Phone Alison Haastequila Peterson APRN-PEST CONTROL WORKER Primary Care Provider Source Comments [facility],non-owned Affiliates and Associated Physician Practices is amultiple site organization consisting of ambulatory clinics and hospital sitesin [place], [place], [place] and [place]. This disclosure is being madepursuant to the Care Everywhere program and may not contain all information available regarding this patient. Last updated 18.[facility] Allergies Active Allergy Reactions Criticality Noted Date [...] 02/05/2016 Overview (05/14/2021): Note: Dr. 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 Gender Identity Not on file Sexual Orientation [...] 03/01/1981 DTAP/TDAP/TD VACCINES (1 - Tdap) 1982 Cervical Cancer Screening 1984 PAP SMEAR 1984 PAP with HPV 1993 Respiratory Syncytial Virus (RSV) Vaccine Pt: or over 60 yrs (1 - Risk 50-74 years 1-dose series) 2013 ZOSTER VACCINE (1 of 2) 2013 PNEUMOCOCCAL VACCINE 50+ (2 of 2 - PCV) 10/21/2013 10/21/2012 DIABETES RETINOPATHY SCREENING 05/14/2021 DIABETES-FOOT EXAM WITH MONOFILAMENT 05/14/2021 DIABETES-HGB A1C 05/14/2021 DIABETES-SERUM CREATININE 02/02/2023 02/02/2022 COLOGUARD (AGES 45-75) - COLON CA SCREENING [...] this topic Medical Devices Implanted Type Area Clocksmith Device Identifier Shelf Expiration Date Model / Serial / Lot Graft Bone Crstn Asr Abelino Engel [facility] 14 - [id number] Implanted:Qty: 1 on 02/04/2022 by Guadalupe Stiles MD at [facility] N/A: Spine Cervical Spinal [employer] 09/10/2024 [id number] / [id number] / [id number] Screw 3.5mm 15mm Jennifer Slf Drl Spne Crv Implanted:Qty: 3 on 02/04/2022 by Guadalupe Stiles MD at [facility] N/A: Spine Cervical Medtr[employer] [id number] / / Plate 1 Lvl Spne Crv Ant 21mm Zevo Ti Implanted:Qty: 1 on 02/04/2022 by Guadalupe Stiles MD at [facility] N/A: Spine Cervical Medtronic Sofamor [employer] Spine [id number] / / Screw 3.5mm 13mm Va Slf Drl Spne Crv Ant Implanted:Qty: 1 on 02/04/2022 by Guadalupe Stiles MD at [facility] N/A: Spine Cervical Medtr[employer] [id number] / / Procedures Procedure Name Priority Date/Time Associated Diagnosis Comments BASIC METABOLIC PANEL (CALCIUM TOTAL) Routine 02/02/2022 2:19 PM CDT Pre-op testing from Last 3 Months or Most Recently Relevant to Health Maintenance Results * (ABNORMAL) BASIC METABOLIC PANEL (CALCIUM TOTAL) (02/02/2022 2:19 PM CDT) BUN 16 7 - 26 mg/dL 02/02/2022 3:23 PM CDT [facility] Creatinine 0.99(H) 0.56 - 0.96 mg/dL 02/02/2022 3:23 PM CDT [facility] Sodium 145 136 - 145 mmol/L 02/02/2022 3:23 PM CDT [facility] Potassium 3.4(L) 3.5 - 4.5 [...] LAB - CHEMISTRY ORDERABLES Allegra wei Result [facility] [address] [place] [address], [facility] [phone] from Last 3 Months or Most Recently Relevant to Health Maintenance Insurance [facility] MANAGED MEDICARE ADV [facility] MANAGED MEDICARE ADV [place] [id number] Care Teams Tower Crane Operator Relationship Specialty Start Date End Date Martha Haas, MEDICAL REIMBURSEMENT MANAGER-PEST CONTROL WORKER [address] [place] [address] PCP - General 02/12/22
--- NOTE | 2025-10-04 10:54 | S_PTH ---
PATIENT: Maggie García LOC: [facility] U#:[id number] AGE/SX: 60/F ROOM: RE10/04/[address]: Solange Wallace APRN : 1965 BED: DIS: 10/04/2025 SPEC #: [id number] RECD: 10/04/25 12:48 STATUS: JASMINA LUNA #: [id number] DARIEL: 10/04/25 10:[address]: Solange Wallace DEPT: [facility] Surgical RECD BY: Diana Sepulveda Tissues: A - Breast Biopsy Procedures: P63 Hematoxylin and Eosin Stain Gross and Microscopic Level 4 ER-60 NV-60 MIB-60 HER 2-60 CD 34 CK 5
== END 2025-10-04 08:22 | disposition home or self-care (01) ==
LOC: ANHFOHIMG 08:22
PROVIDERS: PCP Nurse Practitioner Family; Visit Provider Nurse Practitioner Family
DX: R92.8 Other abnormal and inconclusive findings on diagnostic imaging of breast (principal); N63.10 Unspecified lump in the right breast, unspecified quadrant
CPT/HCPCS: 19083; 77065; 88305; 88342; 88360; A4648